=== PATIENT | male | born 1970 | race African-American/Black ===

== ENCOUNTER 2017-06-09 16:07 | Emergency (ER) | payer MEDICAID, OTHER ==
[~2017-06-09] VITALS: Ht 182.9 cm; Wt 92.0 kg
[~2017-06-09 16:07] MED LIST: ATOR10TA69 PO; CARV12.545 PO; DIGO250T81 PO; FURO40TA5 PO; LISI-186 PO; METOLAZONE PO; SPIR25TA4 PO
[2017-06-09 16:11] VITALS: BP 120/78
== END 2017-06-09 18:58 | disposition left against medical advice (07) ==
LOC: ER 16:36
DX: Z53.21 Procedure and treatment not carried out due to patient leaving prior to being seen by health care provider (principal)

== ENCOUNTER 2017-12-19 23:44 | Emergency (ER) | payer MEDICAID ==
[~2017-12-19] VITALS: Ht 182.9 cm; Wt 92.0 kg
[2017-12-20] MEDS ORDERED: ONDANSETRON HCL 4MG/2ML VIAL IV STA (00:41)
[2017-12-20] MEDS ORDERED: MORPHINE SULFATE 4 MG/ML CPJ (NOT FOR IM USE) IV STA (00:41)
[2017-12-20 01:08] LABS: BASOPHILS % 0.7 % (0.0-2.0); EOSINOPHILS % 0.3 % (0.0-5.0); HEMATOCRIT. 35.4 % (42.0-52.0); HEMOGLOBIN. 11.4 g/dL (14.0-18.0); LYMPHOCYTES % 7.1 % (20.0-50.0); MEAN CORPUSCULAR HEMOGLOBIN 29.9 pg (28.0-32.0); MEAN CORPUSCULAR VOLUME 92.9 fL (80.0-94.0); MEAN PLATELET VOLUME 6.7 fl (7.4-10.4); MONOCYTES % 9.7 % (2.0-8.0); NEUTROPHILS % 82.2 % (40.0-76.0); PLATELET 369 x1000/uL (130-400); RED BLOOD CELL COUNT 3.81 mill/uL (4.7-6.1); RED CELL DISTRIBUTION WIDTH 16.3 % (11.6-14.6)
[2017-12-20 01:44] LABS: CARBON DIOXIDE 27 mEq/L (21-32); CHLORIDE 98 mEq/L (98-107); TROPONIN I < 0.02 ng/mL (0.00-0.04)
[2017-12-20] MEDS ORDERED: IOHEXOL-350 100 ML BOTTLE ONE (06:17)
[2017-12-20 09:12] VITALS: BP 118/78
== END 2017-12-20 09:14 | disposition home or self-care (01) ==
LOC: ER 23:44
DX: R09.1 Pleurisy (principal); I10 Essential (primary) hypertension; J44.9 Chronic obstructive pulmonary disease, unspecified; F17.210 Nicotine dependence, cigarettes, uncomplicated; F12.10 Cannabis abuse, uncomplicated; Z91.011 Allergy to milk products
CPT/HCPCS: 36415; 71045; 71275; 80053; 83880; 84484; 85025; 85379; 93005; 96374; 96375; 99285; J2270; J2405; Q9967

== ENCOUNTER 2018-04-15 15:26 | Emergency (ER) | payer MEDICAID ==
[~2018-04-15] VITALS: Ht 182.9 cm; Wt 85.0 kg
[~2018-04-15 15:26] MED LIST changes: +ASPI-1158 MT; -DIGO250T81 PO; +NITR0.4T49 SL
[2018-04-15] MEDS ORDERED: LIDOCAINE HCL/EPINEPHRINE 1%-EPI 1:100,000 20 ML VIAL INFIL ONE (19:30)
[2018-04-15] MEDS ORDERED: HYDROCODONE/ACETAMINOPHEN 5/325MG TABLET PO ONE (19:30)
[2018-04-15 20:45] VITALS: BP 120/84
[2018-04-15] MEDS ORDERED: BACITRACIN ZINC OINT UDPKT TOP ONE (21:30)
== END 2018-04-15 21:30 | disposition home or self-care (01) ==
LOC: ER 15:55
DX: S81.811A Laceration without foreign body, right lower leg, initial encounter (principal); I10 Essential (primary) hypertension; F17.200 Nicotine dependence, unspecified, uncomplicated; Z79.82 Long term (current) use of aspirin; Y93.55 Activity, bike riding
CPT/HCPCS: 12004; 99283; J3490; X7700; Z7610

== ENCOUNTER 2018-04-21 12:26 | Emergency (ER) | payer MEDICAID ==
[~2018-04-21] VITALS: Ht 185.4 cm; Wt 89.0 kg
[2018-04-21 12:51] VITALS: BP 114/72
== END 2018-04-21 13:37 | disposition home or self-care (01) ==
LOC: ER 13:30
DX: Z48.00 Encounter for change or removal of nonsurgical wound dressing (principal)
CPT/HCPCS: 99281

== ENCOUNTER 2018-05-31 18:56 | Emergency (ER) | payer MEDICAID ==
[~2018-05-31] VITALS: Ht 185.4 cm; Wt 90.5 kg
[~2018-05-31 18:56] MED LIST changes: -SPIR25TA4 PO; +SPIR25TA6 PO
[2018-05-31] MEDS ORDERED: SULFAMETHOXAZOLE/TRIMETHOPRIM 800/160MG TABLET PO ONE (22:00)
[2018-05-31] MEDS ORDERED: CEPHALEXIN 500MG CAPSULE PO ONE (22:00)
[2018-05-31 22:21] VITALS: BP 125/88
== END 2018-05-31 22:22 | disposition home or self-care (01) ==
LOC: ER 22:15
DX: L76.82 Other postprocedural complications of skin and subcutaneous tissue (principal); L03.115 Cellulitis of right lower limb; Z48.02 Encounter for removal of sutures; I11.0 Hypertensive heart disease with heart failure; I50.9 Heart failure, unspecified; F12.10 Cannabis abuse, uncomplicated; F15.10 Other stimulant abuse, uncomplicated; Z91.011 Allergy to milk products; Y83.8 Other surgical procedures as the cause of abnormal reaction of the patient, or of later complication, without mention of misadventure at the time of the procedure
CPT/HCPCS: 99283

== ENCOUNTER 2018-09-22 23:12 | Inpatient (IN) | payer MEDICAID ==
[~2018-09-22] VITALS: Ht 185.4 cm; Wt 94.8 kg
[2018-09-23] MEDS ORDERED: MORPHINE SULFATE 4 MG/ML CPJ (NOT FOR IM USE) IV STA (03:28)
[2018-09-23] MEDS ORDERED: SODIUM CHLORIDE 0.9% 1,000 ML IV ONE (03:28)
[2018-09-23] MEDS ORDERED: ONDANSETRON HCL 4MG/2ML INJ IV STA (03:28)
[2018-09-23] MEDS ORDERED: VANCOMYCIN 1 G PREMIX 200 ML IV ONE (04:30)
[2018-09-23 04:32] LABS: HEMATOCRIT. 34.8 % (42.0-52.0); HEMOGLOBIN. 11.4 g/dL (14.0-18.0); MEAN CORPUSCULAR VOLUME 94.6 fL (80.0-94.0); PLATELET 327 x1000/uL (130-400); RED BLOOD CELL COUNT 3.68 mill/uL (4.7-6.1)
[2018-09-23 04:41] LABS: CHLORIDE 105 mEq/L (98-107)
[2018-09-23 06:15] LABS: PLATELET ESTIMATE NORMAL
[2018-09-23] MEDS ORDERED: HYDROCODONE/ACETAMINOPHEN 5/325MG TABLET PO PRN (08:45)
[2018-09-23] MEDS ORDERED: HYDROCODONE/ACETAMINOPHEN 10/325MG TABLET PO PRN (08:45)
[2018-09-23] MEDS ORDERED: ONDANSETRON HCL 4MG/2ML INJ IV PRN (08:45)
[2018-09-23] MEDS ORDERED: ACETAMINOPHEN 325MG TABLET PO PRN (08:45)
[2018-09-23] MEDS ORDERED: ACETAMINOPHEN 650MG/20.3ML UDC GT PRN (08:45)
[2018-09-23] MEDS ORDERED: ACETAMINOPHEN 650MG SUPP PR PRN (08:45)
[2018-09-23 09:36] LABS: *AMPHETAMINES SCREEN URINE PRESUMTIVE POSITIVE (NEGATIVE); *BARBITURATES SCREEN URINE NEGATIVE (NEGATIVE); *BENZODIAZEPINES SCREEN URINE NEGATIVE (NEGATIVE); *COCAINE SCREEN URINE NEGATIVE (NEGATIVE); CANNABINOID URINE SCREEN PRESUMTIVE POSITIVE (NEGATIVE); METHADONE URINE SCREEN NEGATIVE (NEGATIVE); OPIATES URINE SCREEN PRESUMTIVE POSITIVE (NEGATIVE); PHENCYCLIDINE URINE SCREEN NEGATIVE (NEGATIVE)
[2018-09-23 11:00] VITALS: BP 125/93
[2018-09-23 12:00] VITALS: BP 125/93
[2018-09-23] MEDS: SPIRONOLACTONE 25MG TABLET PO SCH (15:48)
[2018-09-23] MEDS: FUROSEMIDE 40MG TABLET PO SCH (15:48)
[2018-09-23] MEDS: LISINOPRIL 5MG TABLET PO SCH (15:49)
[2018-09-23] MEDS: ASPIRIN 81MG TABLET PO SCH (15:50)
[2018-09-23 16:00] VITALS: BP 109/68
[2018-09-23 16:13] LABS: CREATINE KINASE 89 IU/L (39-308); CREATINE KINASE MB FRACTION 3.7 ng/mL (0.5-3.6)
[2018-09-23 17:29] LABS: CLARITY URINE CLEAR (CLEAR); COLOR URINE YELLOW (YELLOW); KETONES URINE NEGATIVE (NEGATIVE); LEUKOCYTE ESTERASE URINE NEGATIVE (NEGATIVE); NITRITE URINE NEGATIVE (NEGATIVE); OCCULT BLOOD URINE TRACE (NEGATIVE); PROTEIN URINE 2+ (NEGATIVE); SPECIFIC GRAVITY URINE 1.017 (1.005-1.030); UROBILINOGEN URINE 0.2 E.U./dL (0.2-1.0)
[2018-09-23] MEDS: PANTOPRAZOLE 40MG DR TABLET PO SCH (18:01)
[2018-09-23 20:00] VITALS: BP 106/70
[2018-09-23] MEDS ORDERED: VANCOMYCIN 1250MG in DEXTROSE 5% WATER 250ML IV NR (20:00)
[2018-09-24] VITALS: BP 117/76
[2018-09-24 00:06] LABS: CREATINE KINASE 80 IU/L (39-308); CREATINE KINASE MB FRACTION 3.2 ng/mL (0.5-3.6)
[2018-09-24] MEDS: CARVEDILOL 12.5MG TABLET PO SCH ×3 (00:58→21:30)
[2018-09-24 04:00] VITALS: BP 119/72
[2018-09-24] MEDS: PANTOPRAZOLE 40MG DR TABLET PO SCH (06:49)
[2018-09-24 07:32] LABS: HEMATOCRIT. 33.7 % (42.0-52.0); HEMOGLOBIN. 11.2 g/dL (14.0-18.0); MEAN CORPUSCULAR HEMOGLOBIN 31.3 pg (28.0-32.0); MEAN CORPUSCULAR VOLUME 94.4 fL (80.0-94.0); MEAN PLATELET VOLUME 7.3 fl (7.4-10.4); PLATELET 306 x1000/uL (130-400); RED BLOOD CELL COUNT 3.57 mill/uL (4.7-6.1); RED CELL DISTRIBUTION WIDTH 17.2 % (11.6-14.6)
[2018-09-24 08:00] VITALS: BP 106/70
[2018-09-24] MEDS ORDERED: VANCOMYCIN 1 G PREMIX 200 ML IV SCH (08:00)
[2018-09-24 08:53] LABS: CHLORIDE 102 mEq/L (98-107)
[2018-09-24] MEDS: LISINOPRIL 5MG TABLET PO SCH (09:00)
[2018-09-24 09:07] LABS: HDL CHOLESTEROL 60 mg/dL (40-59); LDL CHOLESTEROL 66 mg/dL (5-100); T4 FREE 0.89 ng/dL (0.76-1.46)
[2018-09-24] MEDS: ASPIRIN 81MG TABLET PO SCH (09:24)
[2018-09-24] MEDS: FUROSEMIDE 40MG TABLET PO SCH (09:24)
[2018-09-24] MEDS: SPIRONOLACTONE 25MG TABLET PO SCH (09:24)
[2018-09-24 12:40] VITALS: BP 105/74
[2018-09-24 13:06] LABS: NUCLEATED RED BLOOD CELLS 1 /100 WBC; PLATELET ESTIMATE NORMAL
[2018-09-24 16:00] VITALS: BP 114/83
[2018-09-24 20:00] VITALS: BP 135/91
[2018-09-24] MEDS: VANCOMYCIN 1 G PREMIX 200 ML IV SCH (21:29)
[2018-09-25] VITALS: BP 114/69
[2018-09-25 04:00] VITALS: BP 107/74
[2018-09-25] MEDS: PANTOPRAZOLE 40MG DR TABLET PO SCH (06:28)
[2018-09-25 07:10] LABS: BASOPHILS % 0.4 % (0.0-2.0); EOSINOPHILS % 0.4 % (0.0-5.0); HEMATOCRIT. 34.9 % (42.0-52.0); HEMOGLOBIN. 11.8 g/dL (14.0-18.0); LYMPHOCYTES % 9.2 % (20.0-50.0); MEAN CORPUSCULAR HEMOGLOBIN 31.8 pg (28.0-32.0); MEAN PLATELET VOLUME 7.3 fl (7.4-10.4); MONOCYTES % 13.6 % (2.0-8.0); NEUTROPHILS % 76.4 % (40.0-76.0); PLATELET 317 x1000/uL (130-400); RED BLOOD CELL COUNT 3.71 mill/uL (4.7-6.1); RED CELL DISTRIBUTION WIDTH 17.3 % (11.6-14.6)
[2018-09-25 08:00] VITALS: BP 133/76
[2018-09-25 08:15] LABS: CHLORIDE 100 mEq/L (98-107)
[2018-09-25] MEDS: SPIRONOLACTONE 25MG TABLET PO SCH (08:36)
[2018-09-25] MEDS: LISINOPRIL 5MG TABLET PO SCH (08:36)
[2018-09-25] MEDS: FUROSEMIDE 40MG TABLET PO SCH (08:36)
[2018-09-25] MEDS: ASPIRIN 81MG TABLET PO SCH (08:36)
[2018-09-25] MEDS: CARVEDILOL 12.5MG TABLET PO SCH (08:37)
[2018-09-25] MEDS: VANCOMYCIN 1 G PREMIX 200 ML IV SCH (08:37)
[2018-09-25 12:00] VITALS: BP 114/90
[2018-09-25 16:00] VITALS: BP 107/76
[2018-09-25] MEDS ORDERED: DOXY150T MT (16:45)
[2018-09-25] MEDS ORDERED: PANT40TA4 PO (16:45)
[2018-09-25] MEDS ORDERED: CEPH-569 MT (16:45)
[2018-09-25 16:55] VITALS: BP 107/76
== END 2018-09-25 18:03 | disposition home or self-care (01) | DRG 207 ==
LOC: ER 23:12 → EDBEDREQ 09-23 03:40 → 6EST 09-23 07:19 → EDBEDREQTM 09-23 08:10 → EDBEDREQ 09-23 08:10
PROVIDERS: ADMIT Internal Medicine; ATTEND Internal Medicine
DX: I87.8 Other specified disorders of veins (principal); N17.9 Acute kidney failure, unspecified; R65.10 Systemic inflammatory response syndrome (SIRS) of non-infectious origin without acute organ dysfunction; L03.115 Cellulitis of right lower limb; I11.0 Hypertensive heart disease with heart failure; I50.9 Heart failure, unspecified; E78.5 Hyperlipidemia, unspecified; F17.200 Nicotine dependence, unspecified, uncomplicated; J44.9 Chronic obstructive pulmonary disease, unspecified; Z79.899 Other long term (current) drug therapy; Z79.82 Long term (current) use of aspirin; Z91.011 Allergy to milk products
CPT/HCPCS: 36415; 80048; 80061; 80202; 80305; 82550; 82553; 83605; 84145; 84439; 84443; 84481; 84484; 93971; 96365; 96375; 97116; 97162; 99285; J2270; J2405; J3370; J7030; J7050; J7060

== ENCOUNTER 2019-02-07 00:33 | Inpatient (IN) | payer MEDICAID ==
[~2019-02-07] VITALS: Ht 185.4 cm; Wt 105.7 kg
[~2019-02-07 00:33] MED LIST changes: +CEPH-569 MT; +DOXY150T MT; +PANT40TA4 PO
[2019-02-07] MEDS ORDERED: KETOROLAC 30MG/ML VIAL IV STA (06:29)
[2019-02-07 07:01] LABS: BASOPHILS % 0.6 % (0.0-2.0); EOSINOPHILS % 0.3 % (0.0-5.0); HEMATOCRIT. 36.4 % (42.0-52.0); HEMOGLOBIN. 11.9 g/dL (14.0-18.0); MEAN CORPUSCULAR HEMOGLOBIN 31.1 pg (28.0-32.0); MEAN CORPUSCULAR VOLUME 94.9 fL (80.0-94.0); MEAN PLATELET VOLUME 7.4 fl (7.4-10.4); MONOCYTES % 12.3 % (2.0-8.0); NEUTROPHILS % 78.8 % (40.0-76.0); PLATELET 310 x1000/uL (130-400); RED BLOOD CELL COUNT 3.83 mill/uL (4.7-6.1); RED CELL DISTRIBUTION WIDTH 17.8 % (11.6-14.6)
[2019-02-07 07:02] LABS: CHLORIDE 106 mEq/L (98-107)
[2019-02-07 13:00] VITALS: BP 136/86
[2019-02-07 13:02] VITALS: BP 136/86
[2019-02-07] MEDS ORDERED: ONDANSETRON HCL 4MG/2ML INJ IV PRN (14:00)
[2019-02-07] MEDS ORDERED: ASPIRIN 81MG TABLET PO SCH (14:00)
[2019-02-07] MEDS ORDERED: CLONIDINE 0.1MG TABLET PO PRN (14:00)
[2019-02-07] MEDS: CARVEDILOL 3.125 MG TABLET PO SCH ×2 (14:00→22:17)
[2019-02-07] MEDS ORDERED: DOCUSATE SODIUM 100MG CAPSULE PO PRN (14:00)
[2019-02-07] MEDS ORDERED: IPRATROPIUM/ALBUTEROL 0.5-3(2.5)MG/3ML NEB INH PRN (14:00)
[2019-02-07] MEDS ORDERED: LORAZEPAM 0.5MG TABLET PO PRN (14:00)
[2019-02-07] MEDS ORDERED: ACETAMINOPHEN 325MG TABLET PO PRN (14:00)
[2019-02-07] MEDS ORDERED: HYDROCODONE/ACETAMINOPHEN 5/325MG TABLET PO PRN (14:00)
[2019-02-07 14:55] VITALS: BP 108/73
[2019-02-07 15:44] VITALS: BP 101/67
[2019-02-07] MEDS: MORPHINE SULFATE 4 MG/ML CPJ (NOT FOR IM USE) IV PRN (15:49)
[2019-02-07 19:32] LABS: CREATINE KINASE MB FRACTION 4.5 ng/mL (0.5-3.6)
[2019-02-07] MEDS ORDERED: AZITHROMYCIN 500 MG in DEXT 5% WATER 250 ML IV SCH (19:45)
[2019-02-07] MEDS ORDERED: GUAIFENESIN-DM 200MG-20MG/10ML UDC PO PRN (19:45)
[2019-02-07 20:00] VITALS: BP 117/78
[2019-02-07] MEDS ORDERED: DEXTROSE 50% WATER 50ML SYRINGE IV PRN (21:15)
[2019-02-07] MEDS: ATORVASTATIN CALCIUM 10MG TABLET PO SCH (21:26)
[2019-02-07] MEDS: ENOXAPARIN 30MG/0.3ML SYR SUBCUT SCH (21:26)
[2019-02-07] MEDS: AZITHROMYCIN 500 MG TABLET PO SCH (21:27)
[2019-02-07] MEDS: LISINOPRIL 5MG TABLET PO SCH (21:27)
[2019-02-07 22:17] LABS: PHOSPHORUS 2.8 mg/dL (2.5-4.9)
[2019-02-07 22:34] LABS: FOLIC ACID (FOLATE) SERUM 15.9 ng/mL (>5.38)
[2019-02-08] VITALS: BP 121/89
[2019-02-08 04:00] VITALS: BP 104/73
[2019-02-08] MEDS: MORPHINE SULFATE 4 MG/ML CPJ (NOT FOR IM USE) IV PRN ×2 (04:15→20:02)
[2019-02-08 05:35] LABS: HEMATOCRIT. 33.9 % (42.0-52.0); HEMOGLOBIN. 11.1 g/dL (14.0-18.0); MEAN CORPUSCULAR HEMOGLOBIN 31.2 pg (28.0-32.0); MEAN CORPUSCULAR VOLUME 95.5 fL (80.0-94.0); MEAN PLATELET VOLUME 7.3 fl (7.4-10.4); PLATELET 293 x1000/uL (130-400); RED BLOOD CELL COUNT 3.55 mill/uL (4.7-6.1); RED CELL DISTRIBUTION WIDTH 17.8 % (11.6-14.6)
[2019-02-08 05:47] LABS: CHLORIDE 104 mEq/L (98-107)
[2019-02-08 08:00] VITALS: BP 122/82
[2019-02-08] MEDS: INSULIN LISPRO 100 UNITS/ML SUBCUT SCH ×4 (08:10→21:00)
[2019-02-08] MEDS: LISINOPRIL 5MG TABLET PO SCH (08:16)
[2019-02-08] MEDS: BLOOD SUGAR DIAGNOSTIC STRIP TEST SCH ×4 (08:16→21:00)
[2019-02-08] MEDS: PANTOPRAZOLE 40MG DR TABLET PO SCH (08:17)
[2019-02-08] MEDS: FUROSEMIDE 40MG/4ML VIAL IVP SCH (08:17)
[2019-02-08] MEDS: CARVEDILOL 3.125 MG TABLET PO SCH ×2 (08:17→20:03)
[2019-02-08] MEDS: SPIRONOLACTONE 25MG TABLET PO SCH (08:17)
[2019-02-08] MEDS: ASPIRIN 81MG TABLET PO SCH (08:17)
[2019-02-08] MEDS: ENOXAPARIN 30MG/0.3ML SYR SUBCUT SCH ×2 (08:18→20:02)
[2019-02-08 12:00] VITALS: BP 121/83
[2019-02-08 12:39] LABS: CLARITY URINE CLEAR (CLEAR); COLOR URINE YELLOW (YELLOW); KETONES URINE NEGATIVE (NEGATIVE); LEUKOCYTE ESTERASE URINE NEGATIVE (NEGATIVE); NITRITE URINE NEGATIVE (NEGATIVE); OCCULT BLOOD URINE NEGATIVE (NEGATIVE); PH URINE 5.5 (4.5-8.0); PROTEIN URINE 1+ (NEGATIVE); SPECIFIC GRAVITY URINE 1.015 (1.005-1.030); UROBILINOGEN URINE 0.2 E.U./dL (0.2-1.0)
[2019-02-08 13:12] LABS: *AMPHETAMINES SCREEN URINE PRESUMTIVE POSITIVE (NEGATIVE); *BARBITURATES SCREEN URINE NEGATIVE (NEGATIVE); *BENZODIAZEPINES SCREEN URINE NEGATIVE (NEGATIVE)
[2019-02-08 13:13] LABS: *COCAINE SCREEN URINE NEGATIVE (NEGATIVE)
[2019-02-08 13:14] LABS: OPIATES URINE SCREEN PRESUMTIVE POSITIVE (NEGATIVE)
[2019-02-08 13:16] LABS: CANNABINOID URINE SCREEN NEGATIVE (NEGATIVE)
[2019-02-08 13:17] LABS: METHADONE URINE SCREEN NEGATIVE (NEGATIVE)
[2019-02-08 13:18] LABS: PHENCYCLIDINE URINE SCREEN NEGATIVE (NEGATIVE)
[2019-02-08 13:57] LABS: NUCLEATED RED BLOOD CELLS 1 /100 WBC; PLATELET ESTIMATE NORMAL
[2019-02-08 16:00] VITALS: BP 128/79
[2019-02-08] MEDS: AZITHROMYCIN 500 MG TABLET PO SCH (16:47)
[2019-02-08] MEDS: NICOTINE 14MG PATCH TD SCH (16:47)
[2019-02-08] MEDS: METHYLPREDNISOLONE SOD SUCC 40 MG/ML VIAL IV SCH ×2 (16:54→23:48)
[2019-02-08 20:00] VITALS: BP 103/75
[2019-02-08] MEDS: ATORVASTATIN CALCIUM 10MG TABLET PO SCH (20:02)
[2019-02-08] MEDS: CYCLOBENZAPRINE 10MG TABLET PO SCH (22:15)
[2019-02-09] VITALS: BP 110/76
[2019-02-09 04:00] VITALS: BP 116/78
[2019-02-09] MEDS: IPRATROPIUM/ALBUTEROL 0.5-3(2.5)MG/3ML NEB HHN SCH ×4 (05:18→20:20)
[2019-02-09] MEDS: MORPHINE SULFATE 4 MG/ML CPJ (NOT FOR IM USE) IV PRN (05:24)
[2019-02-09] MEDS: CYCLOBENZAPRINE 10MG TABLET PO SCH ×3 (05:24→21:04)
[2019-02-09] MEDS: BLOOD SUGAR DIAGNOSTIC STRIP TEST SCH ×4 (05:44→20:48)
[2019-02-09 06:17] LABS: HEMATOCRIT. 34.2 % (42.0-52.0); HEMOGLOBIN. 11.1 g/dL (14.0-18.0); MEAN CORPUSCULAR HEMOGLOBIN 30.7 pg (28.0-32.0); MEAN CORPUSCULAR VOLUME 95.2 fL (80.0-94.0); MEAN PLATELET VOLUME 7.5 fl (7.4-10.4); PLATELET 315 x1000/uL (130-400); RED CELL DISTRIBUTION WIDTH 18.4 % (11.6-14.6)
[2019-02-09 06:30] LABS: CHLORIDE 102 mEq/L (98-107)
[2019-02-09] MEDS: PANTOPRAZOLE 40MG DR TABLET PO SCH (06:38)
[2019-02-09 06:43] LABS: T4 FREE 0.84 ng/dL (0.76-1.46)
[2019-02-09 08:00] VITALS: BP 108/60
[2019-02-09] MEDS: LISINOPRIL 5MG TABLET PO SCH (08:35)
[2019-02-09] MEDS: ASPIRIN 81MG TABLET PO SCH (08:36)
[2019-02-09] MEDS: SPIRONOLACTONE 25MG TABLET PO SCH (08:36)
[2019-02-09] MEDS: METHYLPREDNISOLONE SOD SUCC 40 MG/ML VIAL IV SCH ×2 (08:36→16:57)
[2019-02-09] MEDS: ENOXAPARIN 30MG/0.3ML SYR SUBCUT SCH ×2 (08:36→20:47)
[2019-02-09] MEDS: NICOTINE 14MG PATCH TD SCH (08:36)
[2019-02-09] MEDS: CARVEDILOL 3.125 MG TABLET PO SCH ×2 (08:36→20:47)
[2019-02-09] MEDS: FUROSEMIDE 40MG/4ML VIAL IVP SCH (08:46)
[2019-02-09] MEDS: INSULIN LISPRO 100 UNITS/ML SUBCUT SCH ×4 (09:28→20:48)
[2019-02-09 10:34] LABS: PLATELET ESTIMATE NORMAL
[2019-02-09 12:00] VITALS: BP 111/79
[2019-02-09] MEDS: GUAIFENESIN 600MG ER TABLET PO SCH ×2 (14:08→20:47)
[2019-02-09] MEDS: BENZONATATE 100MG CAPSULE PO SCH ×2 (14:08→21:04)
[2019-02-09 16:00] VITALS: BP 101/62
[2019-02-09] MEDS: AZITHROMYCIN 500 MG TABLET PO SCH (16:57)
[2019-02-09] MEDS: ATORVASTATIN CALCIUM 10MG TABLET PO SCH (20:47)
[2019-02-09 20:50] VITALS: BP 127/87
[2019-02-10 00:21] VITALS: BP 130/65
[2019-02-10] MEDS: MORPHINE SULFATE 4 MG/ML CPJ (NOT FOR IM USE) IV PRN (02:02)
[2019-02-10 04:00] VITALS: BP 112/76
[2019-02-10] MEDS: BENZONATATE 100MG CAPSULE PO SCH ×2 (05:21→15:30)
[2019-02-10] MEDS: CYCLOBENZAPRINE 10MG TABLET PO SCH ×2 (05:21→15:30)
[2019-02-10] MEDS: BLOOD SUGAR DIAGNOSTIC STRIP TEST SCH ×3 (05:28→17:40)
[2019-02-10 05:44] LABS: HEMATOCRIT. 33.9 % (42.0-52.0); HEMOGLOBIN. 10.8 g/dL (14.0-18.0); MEAN CORPUSCULAR HEMOGLOBIN 30.5 pg (28.0-32.0); MEAN CORPUSCULAR VOLUME 95.4 fL (80.0-94.0); MEAN PLATELET VOLUME 7.3 fl (7.4-10.4); PLATELET 335 x1000/uL (130-400); RED BLOOD CELL COUNT 3.55 mill/uL (4.7-6.1); RED CELL DISTRIBUTION WIDTH 17.7 % (11.6-14.6)
[2019-02-10] MEDS: PANTOPRAZOLE 40MG DR TABLET PO SCH (06:53)
[2019-02-10] MEDS: INSULIN LISPRO 100 UNITS/ML SUBCUT SCH ×3 (06:53→18:30)
[2019-02-10 07:09] LABS: CHLORIDE 104 mEq/L (98-107)
[2019-02-10 08:00] VITALS: BP 106/76
[2019-02-10] MEDS: GUAIFENESIN 600MG ER TABLET PO SCH (08:47)
[2019-02-10] MEDS: ASPIRIN 81MG TABLET PO SCH (08:47)
[2019-02-10] MEDS: NICOTINE 14MG PATCH TD SCH (08:47)
[2019-02-10] MEDS: SPIRONOLACTONE 25MG TABLET PO SCH (08:47)
[2019-02-10] MEDS: CARVEDILOL 3.125 MG TABLET PO SCH (08:48)
[2019-02-10] MEDS: ENOXAPARIN 30MG/0.3ML SYR SUBCUT SCH (08:48)
[2019-02-10] MEDS: LISINOPRIL 5MG TABLET PO SCH (08:49)
[2019-02-10] MEDS: FUROSEMIDE 40MG/4ML VIAL IVP SCH (09:31)
[2019-02-10] MEDS: METHYLPREDNISOLONE SOD SUCC 40 MG/ML VIAL IV SCH (09:31)
[2019-02-10 12:00] VITALS: BP 125/90
[2019-02-10 16:00] VITALS: BP 114/50
[2019-02-10] MEDS ORDERED: AZIT500T5 PO (17:54)
[2019-02-10] MEDS ORDERED: COR3 PO (17:54)
[2019-02-10] MEDS: AZITHROMYCIN 500 MG TABLET PO SCH (18:25)
[2019-02-10 20:00] VITALS: BP 118/78
[2019-02-11 04:15] LABS: PLATELET ESTIMATE NORMAL
[2019-02-11] MEDS ORDERED: FAMOTIDINE 20MG TABLET PO SCH (09:00)
[2019-02-11] MEDS ORDERED: PREDNISONE 20MG TABLET PO SCH (09:00)
== END 2019-02-10 20:10 | disposition home or self-care (01) | DRG 140 ==
LOC: ER 00:33 → 7WST 09:50 → ENRESERV 11:14
PROVIDERS: ADMIT Internal Medicine; ATTEND Internal Medicine
DX: J44.0 Chronic obstructive pulmonary disease with (acute) lower respiratory infection (principal); J96.00 Acute respiratory failure, unspecified whether with hypoxia or hypercapnia; I50.43 Acute on chronic combined systolic (congestive) and diastolic (congestive) heart failure; J84.9 Interstitial pulmonary disease, unspecified; I42.9 Cardiomyopathy, unspecified; E11.22 Type 2 diabetes mellitus with diabetic chronic kidney disease; E11.65 Type 2 diabetes mellitus with hyperglycemia; D53.9 Nutritional anemia, unspecified; J44.1 Chronic obstructive pulmonary disease with (acute) exacerbation; D72.821 Monocytosis (symptomatic); F19.10 Other psychoactive substance abuse, uncomplicated; J20.9 Acute bronchitis, unspecified; E78.5 Hyperlipidemia, unspecified; I13.0 Hypertensive heart and chronic kidney disease with heart failure and stage 1 through stage 4 chronic kidney disease, or unspecified chronic kidney disease; N18.9 Chronic kidney disease, unspecified; D72.823 Leukemoid reaction; F17.210 Nicotine dependence, cigarettes, uncomplicated; T38.0X5A Adverse effect of glucocorticoids and synthetic analogues, initial encounter; Z79.84 Long term (current) use of oral hypoglycemic drugs; Z91.011 Allergy to milk products; Z79.82 Long term (current) use of aspirin; Z79.899 Other long term (current) drug therapy; M94.0 Chondrocostal junction syndrome [Tietze]
CPT/HCPCS: 36415; 71045; 76770; 80048; 80061; 80305; 82550; 82553; 82607; 82728; 82746; 82962; 83036; 83540; 83550; 83735; 83880; 84100; 84439; 84443; 84481; 84484; 85379; 87804; 93005; 93306; 94640; 96374; 99285; J1650; J1815; J1885; J1940; J2270; J2920; J7620

== ENCOUNTER 2019-02-22 18:02 | Inpatient (IN) | payer MEDICAID ==
[~2019-02-22] VITALS: Ht 185.4 cm; Wt 111.1 kg
[~2019-02-22 18:02] MED LIST changes: +AZIT500T5 PO; -CARV12.545 PO; -CEPH-569 MT; +COR3 PO; -DOXY150T MT; -METOLAZONE PO
[2019-02-22 20:08] LABS: BASOPHILS % 0.8 % (0.0-2.0); EOSINOPHILS % 0.4 % (0.0-5.0); HEMATOCRIT. 30.6 % (42.0-52.0); HEMOGLOBIN. 9.9 g/dL (14.0-18.0); LYMPHOCYTES % 10.4 % (20.0-50.0); MEAN CORPUSCULAR HEMOGLOBIN 31.1 pg (28.0-32.0); MEAN CORPUSCULAR VOLUME 95.5 fL (80.0-94.0); MEAN PLATELET VOLUME 7.4 fl (7.4-10.4); MONOCYTES % 11.4 % (2.0-8.0); PLATELET 292 x1000/uL (130-400); RED CELL DISTRIBUTION WIDTH 17.7 % (11.6-14.6)
[2019-02-22 20:11] LABS: CHLORIDE 110 mEq/L (98-107)
[2019-02-22 20:12] LABS: PROTHROMBIN TIME 9.8 sec (9.1-11.1)
[2019-02-22] MEDS ORDERED: ACETAMINOPHEN WITH CODEINE 300/30MG TABLET PO ONE (21:00)
[2019-02-22] MEDS ORDERED: ALBUTEROL (0.083%) 2.5MG/3ML NEB HHN ONE (21:00)
[2019-02-22] MEDS ORDERED: ONDANSETRON HCL 4MG/2ML INJ IV PRN (22:00)
[2019-02-22] MEDS ORDERED: HYDROCODONE/ACETAMINOPHEN 5/325MG TABLET PO PRN (22:00)
[2019-02-22] MEDS ORDERED: ENOXAPARIN 40MG/0.4ML SYR SUBCUT SCH (22:00)
[2019-02-22] MEDS ORDERED: IPRATROPIUM/ALBUTEROL 0.5-3(2.5)MG/3ML NEB INH PRN (22:00)
[2019-02-22] MEDS ORDERED: CLONIDINE 0.1MG TABLET PO PRN (22:00)
[2019-02-22] MEDS ORDERED: ACETAMINOPHEN 325MG TABLET PO PRN (22:00)
[2019-02-22 23:14] LABS: CHLORIDE 108 mEq/L (98-107)
[2019-02-22 23:22] LABS: CREATINE KINASE 129 IU/L (39-308)
[2019-02-22 23:25] LABS: CREATINE KINASE MB FRACTION 3.9 ng/mL (0.5-3.6)
[2019-02-23 00:16] LABS: CLARITY URINE CLEAR (CLEAR); COLOR URINE YELLOW (YELLOW); KETONES URINE NEGATIVE (NEGATIVE); LEUKOCYTE ESTERASE URINE NEGATIVE (NEGATIVE); NITRITE URINE NEGATIVE (NEGATIVE); OCCULT BLOOD URINE NEGATIVE (NEGATIVE); PROTEIN URINE 2+ (NEGATIVE); SPECIFIC GRAVITY URINE 1.016 (1.005-1.030); UROBILINOGEN URINE 0.2 E.U./dL (0.2-1.0)
[2019-02-23 00:43] LABS: *AMPHETAMINES SCREEN URINE PRESUMTIVE POSITIVE (NEGATIVE); *BARBITURATES SCREEN URINE NEGATIVE (NEGATIVE); *BENZODIAZEPINES SCREEN URINE NEGATIVE (NEGATIVE)
[2019-02-23 00:44] LABS: *COCAINE SCREEN URINE NEGATIVE (NEGATIVE); CANNABINOID URINE SCREEN NEGATIVE (NEGATIVE); OPIATES URINE SCREEN PRESUMTIVE POSITIVE (NEGATIVE); PHENCYCLIDINE URINE SCREEN NEGATIVE (NEGATIVE)
[2019-02-23 00:45] LABS: METHADONE URINE SCREEN NEGATIVE (NEGATIVE)
[2019-02-23 05:21] LABS: LDL CHOLESTEROL 70 mg/dL (5-100)
[2019-02-23 05:22] LABS: CREATINE KINASE 117 IU/L (39-308)
[2019-02-23 05:23] LABS: HDL CHOLESTEROL 57 mg/dL (40-59)
[2019-02-23 05:24] LABS: CREATINE KINASE MB FRACTION 3.8 ng/mL (0.5-3.6)
[2019-02-23 10:30] VITALS: BP_SYST 133; BP_SYST 135; BP_DIAS 106; BP_DIAS 95
[2019-02-23] MEDS ORDERED: ALBU18HF2 IH (11:55)
[2019-02-23] MEDS ORDERED: SACU1TAB MT (11:55)
[2019-02-23 12:00] VITALS: BP 122/83
[2019-02-23] MEDS: ENOXAPARIN 30MG/0.3ML SYR SUBCUT SCH ×2 (13:52→21:31)
[2019-02-23] MEDS ORDERED: SPIRONOLACTONE 25MG TABLET PO SCH (14:30)
[2019-02-23 16:00] VITALS: BP 135/95
[2019-02-23] MEDS: LISINOPRIL 5MG TABLET PO SCH (16:36)
[2019-02-23] MEDS: ASPIRIN 81MG TABLET PO SCH (16:36)
[2019-02-23] MEDS: ATORVASTATIN CALCIUM 10MG TABLET PO SCH (16:36)
[2019-02-23] MEDS: FUROSEMIDE 40MG/4ML VIAL IVP SCH ×2 (16:37→16:56)
[2019-02-23] MEDS: PANTOPRAZOLE 40MG DR TABLET PO SCH (16:37)
[2019-02-23] MEDS: MORPHINE SULFATE 4 MG/ML CPJ (NOT FOR IM USE) IV PRN ×2 (16:46→23:51)
[2019-02-23 19:21] VITALS: BP 134/97
[2019-02-23] MEDS ORDERED: CARVEDILOL 3.125 MG TABLET PO SCH (21:00)
[2019-02-23] MEDS: METOPROLOL TARTRATE 25MG TABLET PO SCH (21:31)
[2019-02-24] VITALS: BP 126/77
[2019-02-24 04:00] VITALS: BP 132/78
[2019-02-24] MEDS: PANTOPRAZOLE 40MG DR TABLET PO SCH (07:01)
[2019-02-24 07:42] LABS: CHLORIDE 106 mEq/L (98-107)
[2019-02-24 08:00] VITALS: BP 145/106
[2019-02-24] MEDS: MORPHINE SULFATE 4 MG/ML CPJ (NOT FOR IM USE) IV PRN ×2 (09:54→21:59)
[2019-02-24] MEDS: ASPIRIN 81MG TABLET PO SCH (10:03)
[2019-02-24] MEDS: ATORVASTATIN CALCIUM 10MG TABLET PO SCH (10:03)
[2019-02-24] MEDS: LISINOPRIL 5MG TABLET PO SCH (10:03)
[2019-02-24] MEDS: METOPROLOL TARTRATE 25MG TABLET PO SCH (10:04)
[2019-02-24] MEDS: FUROSEMIDE 40MG/4ML VIAL IVP SCH (10:10)
[2019-02-24] MEDS: ENOXAPARIN 30MG/0.3ML SYR SUBCUT SCH ×2 (10:11→21:45)
[2019-02-24 12:00] VITALS: BP 139/99
[2019-02-24 16:00] VITALS: BP 111/80
[2019-02-24] MEDS: CYCLOBENZAPRINE 10MG TABLET PO SCH ×2 (17:04→21:33)
[2019-02-24 20:00] VITALS: BP 126/80
[2019-02-24] MEDS: METOPROLOL TARTRATE 50MG TABLET PO SCH (21:33)
[2019-02-25] VITALS: BP 119/59
[2019-02-25 04:00] VITALS: BP 107/62
[2019-02-25] MEDS: CYCLOBENZAPRINE 10MG TABLET PO SCH ×2 (05:56→14:41)
[2019-02-25 07:12] LABS: BASOPHILS % 0.6 % (0.0-2.0); EOSINOPHILS % 0.5 % (0.0-5.0); HEMATOCRIT. 31.7 % (42.0-52.0); HEMOGLOBIN. 10.3 g/dL (14.0-18.0); LYMPHOCYTES % 13.3 % (20.0-50.0); MEAN CORPUSCULAR HEMOGLOBIN 31.3 pg (28.0-32.0); MEAN CORPUSCULAR VOLUME 96.2 fL (80.0-94.0); MEAN PLATELET VOLUME 7.4 fl (7.4-10.4); MONOCYTES % 10.9 % (2.0-8.0); NEUTROPHILS % 74.7 % (40.0-76.0); PLATELET 345 x1000/uL (130-400); RED CELL DISTRIBUTION WIDTH 17.4 % (11.6-14.6)
[2019-02-25 07:47] LABS: CHLORIDE 107 mEq/L (98-107)
[2019-02-25 07:55] VITALS: BP 128/96
[2019-02-25] MEDS: PANTOPRAZOLE 40MG DR TABLET PO SCH (07:58)
[2019-02-25] MEDS ORDERED: FUROSEMIDE 20MG TABLET PO SCH (09:00)
[2019-02-25] MEDS ORDERED: LISINOPRIL 10MG TABLET PO SCH (09:00)
[2019-02-25] MEDS: MORPHINE SULFATE 4 MG/ML CPJ (NOT FOR IM USE) IV PRN (09:13)
[2019-02-25] MEDS: METOPROLOL TARTRATE 50MG TABLET PO SCH (09:17)
[2019-02-25] MEDS: ASPIRIN 81MG TABLET PO SCH (09:18)
[2019-02-25] MEDS: ATORVASTATIN CALCIUM 10MG TABLET PO SCH (09:18)
[2019-02-25] MEDS: ENOXAPARIN 30MG/0.3ML SYR SUBCUT SCH (09:19)
[2019-02-25] MEDS ORDERED: METO100T16 PO (12:07)
[2019-02-25] MEDS ORDERED: FURO20TA4 PO (12:07)
[2019-02-25] MEDS ORDERED: LISI10TA5 PO (12:07)
[2019-02-25 12:30] VITALS: BP_SYST 120; BP_SYST 132; BP_DIAS 74; BP_DIAS 88
[2019-02-25 16:01] VITALS: BP 100/72
[2019-02-25 16:25] VITALS: BP 100/72
[2019-02-25] MEDS ORDERED: METOPROLOL TARTRATE 100MG TABLET PO SCH (21:00)
== END 2019-02-25 18:40 | disposition home or self-care (01) | DRG 194 ==
LOC: ER 18:24 → 6WST 21:34 → EDBEDREQ 21:37 → EDBEDREQTM 21:37 → EDBEDREQSVC 21:37 → ENRESERV 02-23 08:14 → ER 02-23 10:26
PROVIDERS: ADMIT Internal Medicine; ATTEND Internal Medicine
PROC: 0JBN0ZZ Excision of Right Lower Leg Subcutaneous Tissue and Fascia, Open Approach (ICD-10-PCS; principal; 2019-02-24)
DX: I13.0 Hypertensive heart and chronic kidney disease with heart failure and stage 1 through stage 4 chronic kidney disease, or unspecified chronic kidney disease (principal); J84.9 Interstitial pulmonary disease, unspecified; E11.22 Type 2 diabetes mellitus with diabetic chronic kidney disease; E11.42 Type 2 diabetes mellitus with diabetic polyneuropathy; S81.811A Laceration without foreign body, right lower leg, initial encounter; I50.23 Acute on chronic systolic (congestive) heart failure; E11.65 Type 2 diabetes mellitus with hyperglycemia; I47.1 Supraventricular tachycardia; I42.9 Cardiomyopathy, unspecified; E83.51 Hypocalcemia; D53.9 Nutritional anemia, unspecified; D72.821 Monocytosis (symptomatic); E78.5 Hyperlipidemia, unspecified; F17.210 Nicotine dependence, cigarettes, uncomplicated; J44.9 Chronic obstructive pulmonary disease, unspecified; N18.9 Chronic kidney disease, unspecified; E66.01 Morbid (severe) obesity due to excess calories; F15.10 Other stimulant abuse, uncomplicated; L97.919 Non-pressure chronic ulcer of unspecified part of right lower leg with unspecified severity; Y93.89 Activity, other specified; Z79.84 Long term (current) use of oral hypoglycemic drugs; Z68.32 Body mass index [BMI] 32.0-32.9, adult; Y93.55 Activity, bike riding; Y92.89 Other specified places as the place of occurrence of the external cause; Y99.8 Other external cause status; Z71.6 Tobacco abuse counseling; Z91.011 Allergy to milk products; E44.1 Mild protein-calorie malnutrition; J40 Bronchitis, not specified as acute or chronic
CPT/HCPCS: 36415; 71045; 80048; 80061; 80305; 82550; 82553; 83605; 83735; 83880; 84443; 84484; 87804; 93005; 93970; 96374; 99285; J1650; J1940; J2270; J7611

== ENCOUNTER 2019-03-23 13:24 | Inpatient (IN) | payer MEDICAID ==
[~2019-03-23] VITALS: Ht 185.4 cm; Wt 117.9 kg
[~2019-03-23 13:24] MED LIST changes: +ALBU18HF2 IH; -AZIT500T5 PO; -COR3 PO; +FURO20TA4 PO; -FURO40TA5 PO; -LISI-186 PO; +LISI10TA5 PO; +METO100T16 PO; -SPIR25TA6 PO
[2019-03-23] MEDS ORDERED: MORPHINE SULFATE 4 MG/ML CPJ (NOT FOR IM USE) IV STA (13:47)
[2019-03-23] MEDS ORDERED: FAMOTIDINE 20MG/2ML VIAL IV STA (13:47)
[2019-03-23] MEDS ORDERED: ONDANSETRON HCL 4MG/2ML INJ IV STA (13:47)
[2019-03-23] MEDS ORDERED: ALBUTEROL (0.083%) 2.5MG/3ML NEB HHN STA (13:47)
[2019-03-23] MEDS ORDERED: FUROSEMIDE 20MG/2ML VIAL IVP ONE (14:00)
[2019-03-23 14:33] LABS: BASOPHILS % 0.6 % (0.0-2.0); EOSINOPHILS % 0.1 % (0.0-5.0); HEMATOCRIT. 34.9 % (42.0-52.0); HEMOGLOBIN. 11.3 g/dL (14.0-18.0); MEAN CORPUSCULAR HEMOGLOBIN 30.9 pg (28.0-32.0); MEAN CORPUSCULAR VOLUME 95.3 fL (80.0-94.0); MEAN PLATELET VOLUME 7.4 fl (7.4-10.4); MONOCYTES % 13.5 % (2.0-8.0); NEUTROPHILS % 76.8 % (40.0-76.0); PLATELET 412 x1000/uL (130-400); RED BLOOD CELL COUNT 3.66 mill/uL (4.7-6.1); RED CELL DISTRIBUTION WIDTH 17.8 % (11.6-14.6)
[2019-03-23 14:36] LABS: CHLORIDE 104 mEq/L (98-107)
[2019-03-23 14:40] LABS: INR 0.9; PARTIAL THROMBOPLASTIN TIME 25.4 sec (23.4-31.0); PROTHROMBIN TIME 9.5 sec (9.6-11.0)
[2019-03-23 15:07] LABS: CLARITY URINE CLEAR (CLEAR); COLOR URINE YELLOW (YELLOW); KETONES URINE NEGATIVE (NEGATIVE); LEUKOCYTE ESTERASE URINE NEGATIVE (NEGATIVE); NITRITE URINE NEGATIVE (NEGATIVE); OCCULT BLOOD URINE NEGATIVE (NEGATIVE); PROTEIN URINE TRACE (NEGATIVE); UROBILINOGEN URINE 0.2 E.U./dL (0.2-1.0)
[2019-03-23] MEDS ORDERED: LEVOFLOXACIN 500MG PREMIX 100 ML IV ONE (15:15)
[2019-03-23 15:34] LABS: *AMPHETAMINES SCREEN URINE NEGATIVE (NEGATIVE); *BARBITURATES SCREEN URINE NEGATIVE (NEGATIVE); *BENZODIAZEPINES SCREEN URINE NEGATIVE (NEGATIVE); *COCAINE SCREEN URINE NEGATIVE (NEGATIVE); METHADONE URINE SCREEN NEGATIVE (NEGATIVE)
[2019-03-23 15:35] LABS: CANNABINOID URINE SCREEN NEGATIVE (NEGATIVE); OPIATES URINE SCREEN NEGATIVE (NEGATIVE); PHENCYCLIDINE URINE SCREEN NEGATIVE (NEGATIVE)
[2019-03-23] MEDS ORDERED: IPRATROPIUM/ALBUTEROL 0.5-3(2.5)MG/3ML NEB HHN PRN (16:45)
[2019-03-23 21:00] VITALS: BP 136/88
[2019-03-23] MEDS ORDERED: FURO40TA5 PO (21:50)
[2019-03-23] MEDS ORDERED: METO5TAB69 PO (22:23)
[2019-03-23] MEDS ORDERED: METF-414 PO (22:24)
[2019-03-23] MEDS ORDERED: HYDR-4133 PO (22:24)
[2019-03-23] MEDS ORDERED: SACU1TAB PO (22:25)
[2019-03-23] MEDS ORDERED: SPIR25TA6 PO (22:26)
[2019-03-23] MEDS ORDERED: CARV12.545 PO (22:26)
[2019-03-24 00:11] VITALS: BP 120/81
[2019-03-24 04:00] VITALS: BP 115/71
[2019-03-24 06:26] LABS: HEMATOCRIT. 35.7 % (42.0-52.0); HEMOGLOBIN. 11.6 g/dL (14.0-18.0); MEAN CORPUSCULAR HEMOGLOBIN 30.9 pg (28.0-32.0); MEAN PLATELET VOLUME 7.4 fl (7.4-10.4); PLATELET 408 x1000/uL (130-400); RED BLOOD CELL COUNT 3.76 mill/uL (4.7-6.1); RED CELL DISTRIBUTION WIDTH 17.4 % (11.6-14.6)
[2019-03-24 08:28] LABS: CHLORIDE 102 mEq/L (98-107)
[2019-03-24] MEDS ORDERED: DOCUSATE SODIUM 100MG CAPSULE PO PRN (08:45)
[2019-03-24] MEDS ORDERED: CLONIDINE 0.1MG TABLET PO PRN (08:45)
[2019-03-24] MEDS ORDERED: ONDANSETRON HCL 4MG/2ML INJ IV PRN (08:45)
[2019-03-24] MEDS ORDERED: GUAIFENESIN 200MG/10ML SUGAR FREE UDC PO PRN (08:45)
[2019-03-24 09:00] LABS: CREATINE KINASE 97 IU/L (39-308)
[2019-03-24 09:04] LABS: CREATINE KINASE MB FRACTION 4.4 ng/mL (0.5-3.6)
[2019-03-24] MEDS: FUROSEMIDE 40MG/4ML VIAL IVP SCH (09:12)
[2019-03-24 11:33] VITALS: BP 112/80
[2019-03-24] MEDS: IPRATROPIUM/ALBUTEROL 0.5-3(2.5)MG/3ML NEB HHN SCH ×2 (12:30→20:29)
[2019-03-24 15:21] VITALS: BP 113/73
[2019-03-24 15:45] LABS: PLATELET ESTIMATE INCREASED
[2019-03-24 17:42] LABS: CREATINE KINASE 105 IU/L (39-308)
[2019-03-24 17:43] LABS: CREATINE KINASE MB FRACTION 3.9 ng/mL (0.5-3.6)
[2019-03-24 20:27] VITALS: BP 113/77
[2019-03-24] MEDS: BUDESONIDE 0.5MG/2ML NEB HHN SCH (20:29)
[2019-03-25] VITALS: BP 105/73
[2019-03-25] MEDS: IPRATROPIUM/ALBUTEROL 0.5-3(2.5)MG/3ML NEB HHN SCH ×4 (00:49→16:31)
[2019-03-25 04:00] VITALS: BP 108/73
[2019-03-25] MEDS ORDERED: NITROGLYCERIN SL SCH (07:30)
[2019-03-25] MEDS ORDERED: DEXTROSE 50% WATER 50ML SYRINGE IV PRN (07:45)
[2019-03-25 08:00] VITALS: BP 116/79
[2019-03-25] MEDS ORDERED: PANTOPRAZOLE 40MG DR TABLET PO SCH (08:30)
[2019-03-25] MEDS ORDERED: NITROGLYCERIN 0.4MG TABLET SL SL PRN (08:30)
[2019-03-25] MEDS: BUDESONIDE 0.5MG/2ML NEB HHN SCH (08:35)
[2019-03-25] MEDS ORDERED: ACETAMINOPHEN 325MG TABLET PO PRN (08:45)
[2019-03-25] MEDS ORDERED: ASPIRIN 81MG EC TABLET PO SCH (09:00)
[2019-03-25] MEDS ORDERED: HYDRALAZINE HCL 10MG TABLET PO SCH (09:00)
[2019-03-25] MEDS ORDERED: MEDICATION NOT ON FORMULARY EA (Sacubitril/Valsartan (Entresto 24 mg-26 mg Tablet) 1 EAC PO SCH (09:00)
[2019-03-25] MEDS ORDERED: LISINOPRIL 10MG TABLET PO SCH (09:00)
[2019-03-25] MEDS ORDERED: MEDICATION NOT ON FORMULARY EA (Aspirin (Aspirin Ec) 1 TAB) MT SCH (09:00)
[2019-03-25] MEDS ORDERED: HYDRALAZINE HCL PO SCH (09:00)
[2019-03-25] MEDS ORDERED: MEDICATION NOT ON FORMULARY EA (Metoprolol Tartrate 100 MG) PO SCH (09:00)
[2019-03-25] MEDS ORDERED: MEDICATION NOT ON FORMULARY EA (Lisinopril 10 MG) PO SCH (09:00)
[2019-03-25] MEDS ORDERED: ATORVASTATIN CALCIUM 10MG TABLET PO SCH (09:00)
[2019-03-25] MEDS ORDERED: MEDICATION NOT ON FORMULARY EA (Metolazone 5 MG) PO SCH (09:00)
[2019-03-25] MEDS: INSULIN LISPRO 100 UNITS/ML SUBCUT SCH ×3 (09:39→17:50)
[2019-03-25] MEDS: CARVEDILOL 12.5MG TABLET PO SCH ×2 (09:43→17:00)
[2019-03-25] MEDS: FUROSEMIDE 40MG/4ML VIAL IVP SCH (09:44)
[2019-03-25] MEDS ORDERED: SACUBITRIL/VALSARTAN 24/26 TAB PO SCH (10:00)
[2019-03-25] MEDS ORDERED: METOLAZONE 5MG TABLET PO SCH (10:15)
[2019-03-25] MEDS ORDERED: METOPROLOL TARTRATE 100MG TABLET PO SCH (10:17)
[2019-03-25 12:00] VITALS: BP 109/81
[2019-03-25] MEDS: BLOOD SUGAR DIAGNOSTIC STRIP TEST SCH ×2 (12:35→17:20)
[2019-03-25 13:06] VITALS: BP 109/81
[2019-03-25 16:00] VITALS: BP 109/81
[2019-03-26] MEDS ORDERED: MEDICATION NOT ON FORMULARY EA (Pantoprazole Sodium 40 MG) PO SCH (07:20)
== END 2019-03-25 18:43 | disposition home or self-care (01) | DRG 194 ==
LOC: ER 13:24 → 6WST 15:42 → EDBEDREQ 15:47 → EDBEDREQSVC 15:47 → ENRESERV 20:21
PROVIDERS: ADMIT Internal Medicine; ATTEND Internal Medicine
DX: I13.0 Hypertensive heart and chronic kidney disease with heart failure and stage 1 through stage 4 chronic kidney disease, or unspecified chronic kidney disease (principal); J96.00 Acute respiratory failure, unspecified whether with hypoxia or hypercapnia; N17.0 Acute kidney failure with tubular necrosis; R07.81 Pleurodynia; I50.43 Acute on chronic combined systolic (congestive) and diastolic (congestive) heart failure; E11.22 Type 2 diabetes mellitus with diabetic chronic kidney disease; I24.9 Acute ischemic heart disease, unspecified; I42.9 Cardiomyopathy, unspecified; D53.9 Nutritional anemia, unspecified; E11.65 Type 2 diabetes mellitus with hyperglycemia; F19.10 Other psychoactive substance abuse, uncomplicated; E78.5 Hyperlipidemia, unspecified; F17.210 Nicotine dependence, cigarettes, uncomplicated; J44.0 Chronic obstructive pulmonary disease with (acute) lower respiratory infection; N18.2 Chronic kidney disease, stage 2 (mild); Z79.84 Long term (current) use of oral hypoglycemic drugs; Z79.899 Other long term (current) drug therapy; Z79.82 Long term (current) use of aspirin
CPT/HCPCS: 36415; 71045; 74176; 80048; 80061; 80305; 82550; 82553; 82962; 83605; 83735; 83880; 84145; 84443; 84484; 86850; 86900; 93005; 94640; 96365; 96375; 99291; J1815; J1940; J1956; J2270; J2405; J3490; J7611; J7620; J7626

== ENCOUNTER 2020-01-23 16:50 | Inpatient (IN) | payer MEDICAID ==
[~2020-01-23] VITALS: Ht 182.9 cm; Wt 117.9 kg
[~2020-01-23 16:50] MED LIST changes: +CARV12.545 PO; +FURO40TA5 PO; +HYDR-4133 PO; +METF-414 PO; +METO5TAB7 PO; +SACU1TAB PO; +SPIR25TA6 PO
[2020-01-23] MEDS ORDERED: ALBUTEROL (0.083%) 2.5MG/3ML NEB HHN STA (17:01)
[2020-01-23] MEDS ORDERED: ONDANSETRON HCL 4MG/2ML INJ IV STA (17:01)
[2020-01-23] MEDS ORDERED: LABETALOL 5MG/ML SYR 20 MG/4 ML SYRINGE IV ONE (17:15)
[2020-01-23] MEDS ORDERED: KETOROLAC 30MG/ML VIAL IV ONE (17:15)
[2020-01-23 17:35] LABS: CHLORIDE 103 mEq/L (98-107)
[2020-01-23 17:39] LABS: BASOPHILS % 0.9 % (0.0-2.0); EOSINOPHILS % 0.6 % (0.0-5.0); HEMATOCRIT. 36.7 % (42.0-52.0); HEMOGLOBIN. 12.1 g/dL (14.0-18.0); LYMPHOCYTES % 11.3 % (20.0-50.0); MEAN CORPUSCULAR HEMOGLOBIN 32.8 pg (28.0-32.0); MEAN CORPUSCULAR VOLUME 99.6 fL (80.0-94.0); MEAN PLATELET VOLUME 7.7 fl (7.4-10.4); MONOCYTES % 12.7 % (2.0-8.0); NEUTROPHILS % 74.5 % (40.0-76.0); PLATELET 361 x1000/uL (130-400); RED BLOOD CELL COUNT 3.69 mill/uL (4.7-6.1); RED CELL DISTRIBUTION WIDTH 17.9 % (11.6-14.6)
[2020-01-23] MEDS ORDERED: OSELTAMIVIR 75MG CAPSULE PO ONE (21:30)
[2020-01-23] MEDS ORDERED: SODIUM CHLORIDE 0.9% 1,000 ML IV ONE ×2 (21:30)
[2020-01-23] MEDS ORDERED: SODIUM CHLORIDE 0.9% 500 ML IV ONE (21:30)
[2020-01-23] MEDS ORDERED: MORPHINE SULFATE 4 MG/ML CPJ (NOT FOR IM USE) IV ONE (21:30)
[2020-01-23] MEDS ORDERED: IPRATROPIUM/ALBUTEROL 0.5-3(2.5)MG/3ML NEB HHN PRN (22:15)
[2020-01-23] MEDS ORDERED: ZOLPIDEM TARTRATE 5MG TABLET PO PRN (22:15)
[2020-01-23] MEDS ORDERED: DEXTROSE 50% WATER 50ML SYRINGE IV PRN (22:15)
[2020-01-23] MEDS ORDERED: ACETAMINOPHEN 325MG TABLET PO PRN (22:15)
[2020-01-23] MEDS ORDERED: ONDANSETRON HCL 4MG/2ML INJ IV PRN (22:15)
[2020-01-23] MEDS ORDERED: OSELTAMIVIR 75MG CAPSULE PO SCH (22:45)
[2020-01-23] MEDS: SODIUM CHLORIDE 0.9% 1,000 ML IV SCH (23:25)
[2020-01-24 00:45] VITALS: BP 116/80
[2020-01-24] MEDS ORDERED: GLIPIZIDE (02:27)
[2020-01-24 04:00] VITALS: BP 101/60
[2020-01-24] MEDS ORDERED: Vitamin D (04:42)
[2020-01-24 06:14] LABS: CHLORIDE 109 mEq/L (98-107)
[2020-01-24 06:25] LABS: HEMATOCRIT. 31.8 % (42.0-52.0); HEMOGLOBIN. 10.5 g/dL (14.0-18.0); MEAN CORPUSCULAR HEMOGLOBIN 32.8 pg (28.0-32.0); MEAN CORPUSCULAR VOLUME 99.5 fL (80.0-94.0); MEAN PLATELET VOLUME 7.6 fl (7.4-10.4); PLATELET 333 x1000/uL (130-400)
[2020-01-24] MEDS: BLOOD SUGAR DIAGNOSTIC STRIP TEST SCH ×4 (06:47→20:26)
[2020-01-24] MEDS: INSULIN LISPRO 100 UNITS/ML SUBCUT SCH ×4 (06:48→20:25)
[2020-01-24 08:00] VITALS: BP 117/78
[2020-01-24] MEDS: KETOROLAC 30MG/ML VIAL IV PRN ×2 (10:25→18:36)
[2020-01-24] MEDS: SODIUM CHLORIDE 0.9% 1,000 ML IV SCH (11:58)
[2020-01-24 12:00] VITALS: BP 90/66
[2020-01-24 16:00] VITALS: BP 100/73
[2020-01-24 16:43] LABS: PLATELET ESTIMATE NORMAL
[2020-01-24] MEDS: BENZONATATE 100MG CAPSULE PO PRN (16:47)
[2020-01-24 20:00] VITALS: BP 107/63
[2020-01-25] VITALS: BP 120/76
[2020-01-25] MEDS: BENZONATATE 100MG CAPSULE PO PRN (00:41)
[2020-01-25] MEDS: SODIUM CHLORIDE 0.9% 1,000 ML IV SCH (00:48)
[2020-01-25 04:00] VITALS: BP 99/66
[2020-01-25] MEDS: INSULIN LISPRO 100 UNITS/ML SUBCUT SCH ×2 (06:02→11:45)
[2020-01-25] MEDS: BLOOD SUGAR DIAGNOSTIC STRIP TEST SCH ×2 (06:02→11:45)
[2020-01-25 07:13] LABS: HEMATOCRIT. 29.8 % (42.0-52.0); HEMOGLOBIN. 9.9 g/dL (14.0-18.0); MEAN CORPUSCULAR VOLUME 99.8 fL (80.0-94.0); MEAN PLATELET VOLUME 7.7 fl (7.4-10.4); PLATELET 338 x1000/uL (130-400); RED BLOOD CELL COUNT 2.98 mill/uL (4.7-6.1); RED CELL DISTRIBUTION WIDTH 17.9 % (11.6-14.6)
[2020-01-25 08:00] VITALS: BP 109/69
[2020-01-25 08:19] LABS: CHLORIDE 110 mEq/L (98-107)
[2020-01-25 12:41] VITALS: BP 135/53
[2020-01-25] MEDS ORDERED: BENZ-16 MT (12:41)
[2020-01-25 13:38] LABS: PLATELET ESTIMATE NORMAL
== END 2020-01-25 16:00 | disposition home or self-care (01) | DRG 145 ==
LOC: ER 16:50 → 5WST 21:47 → ENRESERV 23:42
PROVIDERS: ADMIT Internal Medicine; ATTEND Internal Medicine
DX: J20.9 Acute bronchitis, unspecified (principal); I27.20 Pulmonary hypertension, unspecified; I11.0 Hypertensive heart disease with heart failure; I50.22 Chronic systolic (congestive) heart failure; I07.1 Rheumatic tricuspid insufficiency; D64.9 Anemia, unspecified; E11.9 Type 2 diabetes mellitus without complications; J06.9 Acute upper respiratory infection, unspecified; E66.9 Obesity, unspecified; F12.90 Cannabis use, unspecified, uncomplicated; G47.33 Obstructive sleep apnea (adult) (pediatric); Z91.011 Allergy to milk products; Z79.899 Other long term (current) drug therapy; Z71.89 Other specified counseling; Z68.35 Body mass index [BMI] 35.0-35.9, adult
CPT/HCPCS: 36415; 71045; 80048; 80053; 82962; 83605; 83880; 84145; 84484; 85025; 87804; 93005; 94640; 99291; J1815; J1885; J2270; J2405; J7030

== ENCOUNTER 2021-07-13 15:36 | Inpatient (IN) | payer MEDICAID ==
[~2021-07-13] VITALS: Ht 185.4 cm; Wt 102.5 kg
[~2021-07-13 15:36] MED LIST changes: -ASPI-1158 MT; +ASPI-1406 MT; +BENZ-16 MT; -FURO20TA4 PO; +GLIPIZIDE; +LISI10TA26 PO; -LISI10TA5 PO; -PANT40TA4 PO; +PANT40TA51 PO; +Vitamin D
[2021-07-13] MEDS: ALBUTEROL (0.083%) 2.5MG/3ML NEB HHN SCH ×3 (21:11→21:54)
[2021-07-13 21:20] LABS: HEMATOCRIT. 36.6 % (42.0-52.0); HEMOGLOBIN. 11.9 g/dL (14.0-18.0); MEAN CORPUSCULAR HEMOGLOBIN 29.8 pg (28.0-32.0); MEAN PLATELET VOLUME 7.7 fl (7.4-10.4); PLATELET 430 x1000/uL (130-400); RED BLOOD CELL COUNT 3.98 mill/uL (4.7-6.1); RED CELL DISTRIBUTION WIDTH 20.3 % (11.6-14.6)
[2021-07-13 21:27] LABS: CHLORIDE 105 mEq/L (98-107)
[2021-07-13 21:34] LABS: PARTIAL THROMBOPLASTIN TIME 26.6 sec (23.4-31.0); PROTHROMBIN TIME 10.3 sec (9.6-11.0)
[2021-07-13] MEDS ORDERED: CEFTRIAXONE 1 G PREMIX 50 ML IV ONE (21:45)
[2021-07-13] MEDS ORDERED: AZITHROMYCIN 500 MG in DEXT 5% WATER 250 ML IV SCH (21:45)
[2021-07-13 21:54] LABS: PLATELET ESTIMATE INCREASED
[2021-07-13] MEDS ORDERED: FUROSEMIDE 20MG/2ML VIAL IVP ONE (23:15)
[2021-07-14 08:05] LABS: CLARITY URINE CLEAR (CLEAR); COLOR URINE YELLOW (YELLOW); KETONES URINE TRACE (NEGATIVE); LEUKOCYTE ESTERASE URINE NEGATIVE (NEGATIVE); NITRITE URINE NEGATIVE (NEGATIVE); OCCULT BLOOD URINE NEGATIVE (NEGATIVE); PROTEIN URINE TRACE (NEGATIVE); SPECIFIC GRAVITY URINE 1.017 (1.005-1.030); UROBILINOGEN URINE 0.2 E.U./dL (0.2-1.0)
[2021-07-14 11:52] VITALS: BP 118/50
[2021-07-14 12:00] VITALS: BP 97/67
[2021-07-14] MEDS ORDERED: SACU1TAB7 MT (12:03)
[2021-07-14] MEDS ORDERED: IPRATROPIUM/ALBUTEROL 0.5-3(2.5)MG/3ML NEB HHN PRN (12:30)
[2021-07-14] MEDS ORDERED: ONDANSETRON HCL 4MG/2ML INJ IV PRN (12:30)
[2021-07-14] MEDS: FAMOTIDINE 20MG TABLET PO SCH ×2 (14:30→22:28)
[2021-07-14] MEDS: METHYLPREDNISOLONE SOD SUCC 40 MG/ML VIAL IV SCH ×2 (14:30→22:27)
[2021-07-14 16:00] VITALS: BP 106/78
[2021-07-14] MEDS: IPRATROPIUM/ALBUTEROL 0.5-3(2.5)MG/3ML NEB HHN SCH ×2 (16:31→21:07)
[2021-07-14 20:00] VITALS: BP 104/59
[2021-07-14] MEDS: ACETYLCYSTEINE 100MG/ML 10% VIAL 4ML INH SCH (21:07)
[2021-07-14] MEDS: GUAIFENESIN 600MG ER TABLET PO SCH (22:28)
[2021-07-14] MEDS: ACETAMINOPHEN 325MG TABLET PO PRN (22:36)
[2021-07-15] VITALS: BP 110/83
[2021-07-15] MEDS: IPRATROPIUM/ALBUTEROL 0.5-3(2.5)MG/3ML NEB HHN SCH ×7 (00:33→20:30)
[2021-07-15 04:00] VITALS: BP 93/61
[2021-07-15 05:45] LABS: HEMATOCRIT. 34.2 % (42.0-52.0); HEMOGLOBIN. 10.9 g/dL (14.0-18.0); MEAN CORPUSCULAR HEMOGLOBIN 29.6 pg (28.0-32.0); MEAN CORPUSCULAR VOLUME 92.7 fL (80.0-94.0); PLATELET 390 x1000/uL (130-400); RED BLOOD CELL COUNT 3.68 mill/uL (4.7-6.1); RED CELL DISTRIBUTION WIDTH 19.8 % (11.6-14.6)
[2021-07-15] MEDS: METHYLPREDNISOLONE SOD SUCC 40 MG/ML VIAL IV SCH ×2 (06:19→13:20)
[2021-07-15] MEDS ORDERED: DEXTROSE 50% WATER 50ML SYRINGE IV PRN (07:00)
[2021-07-15] MEDS: BLOOD SUGAR DIAGNOSTIC STRIP TEST SCH ×4 (07:11→20:57)
[2021-07-15 08:07] VITALS: BP 109/87
[2021-07-15] MEDS: ACETYLCYSTEINE 100MG/ML 10% VIAL 4ML INH SCH ×2 (08:34→16:08)
[2021-07-15] MEDS: GUAIFENESIN 600MG ER TABLET PO SCH ×2 (08:35→21:18)
[2021-07-15] MEDS: FAMOTIDINE 20MG TABLET PO SCH ×2 (08:35→21:18)
[2021-07-15] MEDS: FUROSEMIDE 20MG/2ML VIAL IVP SCH (08:35)
[2021-07-15] MEDS: INSULIN LISPRO 100 UNITS/ML SUBCUT SCH ×4 (08:36→21:19)
[2021-07-15] MEDS: INSULIN GLARGINE UD 100 UNITS/ML SYR SUBCUT SCH ×2 (10:30→21:29)
[2021-07-15 11:01] VITALS: BP 104/65
[2021-07-15 13:28] LABS: *BARBITURATES SCREEN URINE NEGATIVE (NEGATIVE); *BENZODIAZEPINES SCREEN URINE NEGATIVE (NEGATIVE); *COCAINE SCREEN URINE NEGATIVE (NEGATIVE)
[2021-07-15 13:29] LABS: METHADONE URINE SCREEN NEGATIVE (NEGATIVE); OPIATES URINE SCREEN NEGATIVE (NEGATIVE); PHENCYCLIDINE URINE SCREEN NEGATIVE (NEGATIVE)
[2021-07-15 13:32] LABS: *AMPHETAMINES SCREEN URINE NEGATIVE (NEGATIVE); CANNABINOID URINE SCREEN PRESUMTIVE POSITIVE (NEGATIVE)
[2021-07-15 16:39] VITALS: BP 101/72
[2021-07-15 20:00] VITALS: BP 96/62
[2021-07-15 21:23] LABS: PLATELET ESTIMATE NORMAL
[2021-07-16] VITALS: BP 102/64
[2021-07-16] MEDS: ACETAMINOPHEN 325MG TABLET PO PRN ×2 (00:06→06:55)
[2021-07-16] MEDS: ACETYLCYSTEINE 100MG/ML 10% VIAL 4ML INH SCH ×2 (03:06→08:51)
[2021-07-16] MEDS: IPRATROPIUM/ALBUTEROL 0.5-3(2.5)MG/3ML NEB HHN SCH ×3 (03:07→12:36)
[2021-07-16 04:00] VITALS: BP 104/60
[2021-07-16] MEDS: NITROGLYCERIN 0.4MG TABLET SL SL PRN ×2 (06:44→06:51)
[2021-07-16] MEDS: BLOOD SUGAR DIAGNOSTIC STRIP TEST SCH (06:44)
[2021-07-16 07:58] VITALS: BP 100/66
[2021-07-16] MEDS: FAMOTIDINE 20MG TABLET PO SCH (08:57)
[2021-07-16] MEDS: GUAIFENESIN 600MG ER TABLET PO SCH (08:57)
[2021-07-16] MEDS: INSULIN LISPRO 100 UNITS/ML SUBCUT SCH (08:59)
[2021-07-16] MEDS: FUROSEMIDE 20MG/2ML VIAL IVP SCH (09:00)
[2021-07-16] MEDS ORDERED: PREDNISONE 20MG TABLET PO SCH (09:00)
[2021-07-16] MEDS: INSULIN GLARGINE UD 100 UNITS/ML SYR SUBCUT SCH (09:49)
[2021-07-16] MEDS ORDERED: HYDROCODONE/ACETAMINOPHEN 5/325MG TABLET PO NR (10:45)
[2021-07-16 11:34] VITALS: BP 102/74
[2021-07-16 13:53] VITALS: BP 102/74
== END 2021-07-16 15:30 | disposition home or self-care (01) | DRG 140 ==
LOC: ER 15:36 → EDBEDREQ 07-14 00:06 → EDBEDREQTM 07-14 00:06 → MICUSO 07-14 03:42 → 6WST 07-14 07:46
PROVIDERS: ADMIT Internal Medicine; ATTEND Internal Medicine
DX: J44.0 Chronic obstructive pulmonary disease with (acute) lower respiratory infection (principal); N17.0 Acute kidney failure with tubular necrosis; I50.23 Acute on chronic systolic (congestive) heart failure; J18.9 Pneumonia, unspecified organism; R65.10 Systemic inflammatory response syndrome (SIRS) of non-infectious origin without acute organ dysfunction; I11.0 Hypertensive heart disease with heart failure; E11.9 Type 2 diabetes mellitus without complications; D64.9 Anemia, unspecified; F12.90 Cannabis use, unspecified, uncomplicated; J44.1 Chronic obstructive pulmonary disease with (acute) exacerbation; F17.210 Nicotine dependence, cigarettes, uncomplicated; Z20.822 Contact with and (suspected) exposure to COVID-19; Z79.899 Other long term (current) drug therapy; Z91.011 Allergy to milk products; Z79.82 Long term (current) use of aspirin; Z79.84 Long term (current) use of oral hypoglycemic drugs; Z71.6 Tobacco abuse counseling
CPT/HCPCS: 36415; 71045; 80048; 80053; 80305; 81003; 82962; 83036; 83605; 83880; 84484; 85025; 87426; 93005; 93306; 94640; 99285; C1893; J0456; J0696; J1815; J1940; J2920; J7060; J7512; J7608

== ENCOUNTER 2022-05-18 17:13 | Inpatient (IN) | payer MEDICAID, OTHER ==
[~2022-05-18] VITALS: Ht 185.4 cm; Wt 103.3 kg
[~2022-05-18 17:13] MED LIST changes: +SACU1TAB7 MT
[2022-05-18] MEDS ORDERED: MORPHINE SULFATE 4 MG/ML CPJ (NOT FOR IM USE) IV ONE (21:00)
[2022-05-18] MEDS ORDERED: ONDANSETRON HCL 4MG/2ML INJ IV ONE (21:00)
[2022-05-18] MEDS ORDERED: SODIUM CHLORIDE 0.9% 1,000 ML IV ONE (21:00)
[2022-05-18 21:08] LABS: HEMATOCRIT. 40.1 % (42.0-52.0); MEAN CORPUSCULAR HEMOGLOBIN 30.5 pg (28.0-32.0); MEAN CORPUSCULAR VOLUME 94.5 fL (80.0-94.0); MEAN PLATELET VOLUME 8.1 fl (7.4-10.4); PLATELET 344 x1000/uL (130-400); RED BLOOD CELL COUNT 4.25 mill/uL (4.7-6.1); RED CELL DISTRIBUTION WIDTH 17.5 % (11.6-14.6)
[2022-05-18 21:12] LABS: CHLORIDE 80 mEq/L (98-107)
[2022-05-18 22:14] LABS: PLATELET ESTIMATE NORMAL
[2022-05-18] MEDS ORDERED: POTASSIUM CHLORIDE 20MEQ TABLET SR PO NR (23:15)
[2022-05-18 23:52] LABS: CLARITY URINE CLEAR (CLEAR); COLOR URINE YELLOW (YELLOW); KETONES URINE 1+ (NEGATIVE); LEUKOCYTE ESTERASE URINE NEGATIVE (NEGATIVE); NITRITE URINE NEGATIVE (NEGATIVE); OCCULT BLOOD URINE NEGATIVE (NEGATIVE); PROTEIN URINE 1+ (NEGATIVE); SPECIFIC GRAVITY URINE 1.016 (1.005-1.030)
[2022-05-19] VITALS (7 sets, daily range): BP systolic 87–128; BP diastolic 51–81
[2022-05-19] MEDS ORDERED: ONDANSETRON HCL 4MG/2ML INJ IV PRN (02:45)
[2022-05-19] MEDS ORDERED: DEXTROSE 50% WATER 50ML SYRINGE IV PRN (02:45)
[2022-05-19] MEDS: SODIUM CHLORIDE 0.9% 1,000 ML IV SCH ×3 (03:26→22:45)
[2022-05-19] MEDS: HYDROCODONE/ACETAMINOPHEN 10/325MG TABLET PO PRN ×3 (03:26→19:54)
[2022-05-19] MEDS ORDERED: ATOR20TA65 MT (05:04)
[2022-05-19 05:53] LABS: HEMATOCRIT. 34.9 % (42.0-52.0); HEMOGLOBIN. 11.4 g/dL (14.0-18.0); MEAN CORPUSCULAR HEMOGLOBIN 30.7 pg (28.0-32.0); MEAN CORPUSCULAR VOLUME 94.4 fL (80.0-94.0); MEAN PLATELET VOLUME 8.3 fl (7.4-10.4); PLATELET 321 x1000/uL (130-400); RED CELL DISTRIBUTION WIDTH 17.2 % (11.6-14.6)
[2022-05-19] MEDS ORDERED: *PATIENT'S OWN MEDICATION STORAGE XX SCH (06:30)
[2022-05-19] MEDS: BLOOD SUGAR DIAGNOSTIC STRIP TEST SCH ×4 (07:20→21:26)
[2022-05-19] MEDS: INSULIN LISPRO 100 UNITS/ML SUBCUT SCH ×4 (07:50→21:36)
[2022-05-19] MEDS: INSULIN GLARGINE 100 UNITS/ML SUBCUT SCH ×2 (10:45→21:36)
[2022-05-19] MEDS ORDERED: POTASSIUM CHLORIDE 20MEQ TABLET SR PO SCH (11:30)
[2022-05-19] MEDS: OMEPRAZOLE 20MG CAPSULE EXTENDED RELEASE PO SCH (13:40)
[2022-05-19 15:05] LABS: PLATELET ESTIMATE NORMAL
[2022-05-19] MEDS ORDERED: NALOXONE HCL 0.4MG/ML VIAL IV PRN (18:45)
[2022-05-19] MEDS: ENOXAPARIN 30MG/0.3ML SYR SUBCUT SCH (18:50)
[2022-05-19] MEDS: ATORVASTATIN CALCIUM 20MG TABLET PO SCH (21:35)
[2022-05-20] VITALS (7 sets, daily range): BP systolic 100–135; BP diastolic 57–81
[2022-05-20] MEDS: ENOXAPARIN 30MG/0.3ML SYR SUBCUT SCH (05:30)
[2022-05-20] MEDS: OMEPRAZOLE 20MG CAPSULE EXTENDED RELEASE PO SCH (05:30)
[2022-05-20] MEDS: HYDROCODONE/ACETAMINOPHEN 10/325MG TABLET PO PRN ×2 (05:30→13:17)
[2022-05-20] MEDS: SODIUM CHLORIDE 0.9% 1,000 ML IV SCH ×2 (05:36→17:56)
[2022-05-20] MEDS: BLOOD SUGAR DIAGNOSTIC STRIP TEST SCH ×4 (06:56→21:44)
[2022-05-20 08:07] LABS: HEMATOCRIT. 31.9 % (42.0-52.0); HEMOGLOBIN. 10.5 g/dL (14.0-18.0); MEAN CORPUSCULAR HEMOGLOBIN 31.1 pg (28.0-32.0); MEAN CORPUSCULAR VOLUME 94.8 fL (80.0-94.0); MEAN PLATELET VOLUME 8.4 fl (7.4-10.4); PLATELET 283 x1000/uL (130-400); RED BLOOD CELL COUNT 3.36 mill/uL (4.7-6.1); RED CELL DISTRIBUTION WIDTH 17.8 % (11.6-14.6)
[2022-05-20] MEDS: INSULIN LISPRO 100 UNITS/ML SUBCUT SCH ×5 (08:33→21:47)
[2022-05-20] MEDS ORDERED: POTASSIUM CHLORIDE 20MEQ TABLET SR PO NR (12:15)
[2022-05-20] MEDS: INSULIN GLARGINE 100 UNITS/ML SUBCUT SCH ×2 (13:05→21:47)
[2022-05-20] MEDS: METOCLOPRAMIDE HCL 10MG/2ML VIAL IV SCH ×2 (18:14→23:48)
[2022-05-20 18:29] LABS: PLATELET ESTIMATE NORMAL
[2022-05-20] MEDS: ATORVASTATIN CALCIUM 20MG TABLET PO SCH (21:44)
[2022-05-21 04:17] VITALS: BP 113/66
[2022-05-21] MEDS: METOCLOPRAMIDE HCL 10MG/2ML VIAL IV SCH ×4 (06:29→23:59)
[2022-05-21] MEDS: SODIUM CHLORIDE 0.9% 1,000 ML IV SCH ×2 (06:29→14:54)
[2022-05-21] MEDS: BLOOD SUGAR DIAGNOSTIC STRIP TEST SCH ×4 (06:29→21:28)
[2022-05-21] MEDS: OMEPRAZOLE 20MG CAPSULE EXTENDED RELEASE PO SCH (06:32)
[2022-05-21 07:03] LABS: HEMATOCRIT. 31.7 % (42.0-52.0); HEMOGLOBIN. 10.2 g/dL (14.0-18.0); MEAN CORPUSCULAR HEMOGLOBIN 30.6 pg (28.0-32.0); MEAN CORPUSCULAR VOLUME 95.3 fL (80.0-94.0); MEAN PLATELET VOLUME 8.6 fl (7.4-10.4); PLATELET 307 x1000/uL (130-400); RED BLOOD CELL COUNT 3.33 mill/uL (4.7-6.1); RED CELL DISTRIBUTION WIDTH 17.5 % (11.6-14.6)
[2022-05-21 07:14] LABS: CHLORIDE 100 mEq/L (98-107)
[2022-05-21 08:00] VITALS: BP 102/69
[2022-05-21] MEDS: ENOXAPARIN 40MG/0.4ML SYR SUBCUT SCH (08:23)
[2022-05-21] MEDS: INSULIN LISPRO 100 UNITS/ML SUBCUT SCH ×4 (08:24→21:27)
[2022-05-21] MEDS: HYDROCODONE/ACETAMINOPHEN 10/325MG TABLET PO PRN ×2 (08:26→15:44)
[2022-05-21] MEDS ORDERED: OMEP20CA14 PO (11:15)
[2022-05-21] MEDS ORDERED: INSU100I28 SQ (11:15)
[2022-05-21 12:00] VITALS: BP 120/85
[2022-05-21] MEDS: INSULIN GLARGINE 100 UNITS/ML SUBCUT SCH ×2 (12:06→21:28)
[2022-05-21] MEDS ORDERED: PANTOPRAZOLE SODIUM 40 MG/VIAL IV SCH (14:45)
[2022-05-21 16:00] VITALS: BP 126/91
[2022-05-21 18:49] LABS: TOTAL IRON BINDING CAPACITY 194 ug/dL (250-450)
[2022-05-21 19:20] LABS: FOLIC ACID (FOLATE) SERUM 14.7 ng/mL (>5.38)
[2022-05-21 20:00] VITALS: BP 112/69
[2022-05-21] MEDS: ATORVASTATIN CALCIUM 20MG TABLET PO SCH ×2 (21:00→21:23)
[2022-05-21] MEDS: PIPERACILLIN/TAZOBACTAM 3.375 G in DEXTROSE 5% WATER 50 ML IV SCH (21:21)
[2022-05-21] MEDS: ONDANSETRON HCL 4MG/2ML INJ IV PRN (21:22)
[2022-05-21] MEDS: ACETAMINOPHEN 325MG TABLET PO PRN (21:23)
[2022-05-21 21:56] LABS: PLATELET ESTIMATE NORMAL
[2022-05-21] MEDS ORDERED: KETOROLAC 15MG/ML VIAL IV NR (23:15)
[2022-05-21 23:51] LABS: HEMATOCRIT 31.4 % (42.0-52.0); MEAN CORPUSCULAR HEMOGLOBIN 30.7 pg (28.0-32.0); MEAN CORPUSCULAR VOLUME 96.7 fL (80.0-94.0); PLATELET 317 x1000/uL (130-400); RED BLOOD CELL COUNT 3.25 mill/uL (4.7-6.1); RED CELL DISTRIBUTION WIDTH 17.5 % (11.6-14.6)
[2022-05-22] VITALS: BP 114/71
[2022-05-22] MEDS: SODIUM CHLORIDE 0.9% 1,000 ML IV SCH
[2022-05-22 04:00] VITALS: BP 116/69
[2022-05-22] MEDS: METOCLOPRAMIDE HCL 10MG/2ML VIAL IV SCH ×4 (06:34→23:45)
[2022-05-22] MEDS: ONDANSETRON HCL 4MG/2ML INJ IV PRN (06:35)
[2022-05-22] MEDS: PIPERACILLIN/TAZOBACTAM 3.375 G in DEXTROSE 5% WATER 50 ML IV SCH ×3 (06:35→21:59)
[2022-05-22] MEDS: BLOOD SUGAR DIAGNOSTIC STRIP TEST SCH ×4 (06:46→21:25)
[2022-05-22 07:14] LABS: CHLORIDE 106 mEq/L (98-107)
[2022-05-22 07:15] LABS: HEMATOCRIT. 32.3 % (42.0-52.0); HEMOGLOBIN. 10.5 g/dL (14.0-18.0); MEAN CORPUSCULAR HEMOGLOBIN 30.6 pg (28.0-32.0); MEAN CORPUSCULAR VOLUME 94.2 fL (80.0-94.0); MEAN PLATELET VOLUME 8.2 fl (7.4-10.4); PLATELET 342 x1000/uL (130-400); RED BLOOD CELL COUNT 3.43 mill/uL (4.7-6.1); RED CELL DISTRIBUTION WIDTH 17.7 % (11.6-14.6)
[2022-05-22 07:41] VITALS: BP 117/72
[2022-05-22] MEDS: INSULIN LISPRO 100 UNITS/ML SUBCUT SCH ×4 (08:50→22:57)
[2022-05-22] MEDS: PANTOPRAZOLE SODIUM 40 MG/VIAL IV SCH ×2 (08:51→21:59)
[2022-05-22] MEDS: ENOXAPARIN 40MG/0.4ML SYR SUBCUT SCH (08:51)
[2022-05-22] MEDS: INSULIN GLARGINE 100 UNITS/ML SUBCUT SCH ×2 (09:25→23:31)
[2022-05-22] MEDS ORDERED: KCL 20MEQ/100ML PREMIX 100 ML IV NR (11:00)
[2022-05-22] MEDS ORDERED: BISACODYL 10MG SUPP PR NR (11:00)
[2022-05-22 11:34] VITALS: BP 98/63
[2022-05-22] MEDS ORDERED: SODIUM CHLORIDE 0.9% 500 ML IV NR (13:30)
[2022-05-22] MEDS: DEXT 5%/0.9% NACL KCL 20MEQ/L 1,000 ML IV SCH ×2 (13:43→20:00)
[2022-05-22 15:47] VITALS: BP 110/74
[2022-05-22] MEDS: ACETAMINOPHEN 325MG TABLET PO PRN (16:00)
[2022-05-22] MEDS ORDERED: ACETAMINOPHEN 650MG SUPP PR PRN (18:30)
[2022-05-22 20:00] VITALS: BP 105/72
[2022-05-22] MEDS: ATORVASTATIN CALCIUM 20MG TABLET PO SCH ×2 (21:00→21:59)
[2022-05-22 22:03] LABS: PLATELET ESTIMATE NORMAL
[2022-05-23] VITALS: BP 120/80
[2022-05-23] MEDS: DEXT 5%/0.9% NACL KCL 20MEQ/L 1,000 ML IV SCH ×3 (03:37→20:00)
[2022-05-23 04:00] VITALS: BP 104/64
[2022-05-23] MEDS: PIPERACILLIN/TAZOBACTAM 3.375 G in DEXTROSE 5% WATER 50 ML IV SCH ×3 (06:10→22:00)
[2022-05-23] MEDS: METOCLOPRAMIDE HCL 10MG/2ML VIAL IV SCH ×3 (06:10→17:54)
[2022-05-23] MEDS: BLOOD SUGAR DIAGNOSTIC STRIP TEST SCH ×4 (06:47→21:49)
[2022-05-23 07:05] LABS: PROTHROMBIN TIME 11.2 sec (9.6-11.0)
[2022-05-23 07:19] LABS: CHLORIDE 108 mEq/L (98-107)
[2022-05-23 07:22] LABS: HEMATOCRIT. 31.8 % (42.0-52.0); HEMOGLOBIN. 10.3 g/dL (14.0-18.0); MEAN CORPUSCULAR HEMOGLOBIN 30.9 pg (28.0-32.0); MEAN CORPUSCULAR VOLUME 95.4 fL (80.0-94.0); MEAN PLATELET VOLUME 8.1 fl (7.4-10.4); PLATELET 355 x1000/uL (130-400); RED BLOOD CELL COUNT 3.33 mill/uL (4.7-6.1); RED CELL DISTRIBUTION WIDTH 17.6 % (11.6-14.6)
[2022-05-23 08:00] VITALS: BP 107/68
[2022-05-23] MEDS: INSULIN LISPRO 100 UNITS/ML SUBCUT SCH ×4 (08:23→21:00)
[2022-05-23] MEDS: PANTOPRAZOLE SODIUM 40 MG/VIAL IV SCH ×2 (08:37→21:48)
[2022-05-23] MEDS: ENOXAPARIN 40MG/0.4ML SYR SUBCUT SCH (08:37)
[2022-05-23] MEDS ORDERED: NA PHOS,M-B/NA PHOS,DI-BA ENEMA 118ML PR SCH (09:45)
[2022-05-23] MEDS: INSULIN GLARGINE 100 UNITS/ML SUBCUT SCH ×2 (10:00→22:00)
[2022-05-23] MEDS ORDERED: KCL 20MEQ/100ML PREMIX 100 ML IV NR (11:00)
[2022-05-23 12:00] VITALS: BP 131/96
[2022-05-23] MEDS ORDERED: PROPOFOL 200MG/20ML VIAL IV ONE (15:39)
[2022-05-23] MEDS ORDERED: LIDOCAINE HCL 1% 50ML VIAL (10MG/ML) ONE (15:39)
[2022-05-23] MEDS ORDERED: LABETALOL 5MG/ML SYR 20 MG/4 ML SYRINGE IV PRN (16:15)
[2022-05-23] MEDS ORDERED: HYDROMORPHONE HCL/PF 2MG/ML CPJ IV PRN (16:15)
[2022-05-23] MEDS ORDERED: ONDANSETRON HCL 4MG/2ML INJ IV PRN (16:15)
[2022-05-23] MEDS ORDERED: MEPERIDINE HCL/PF 25MG/ML CPJ IV PRN (16:15)
[2022-05-23 16:36] LABS: PLATELET ESTIMATE NORMAL
[2022-05-23 17:30] VITALS: BP 125/87
[2022-05-23 20:00] VITALS: BP 123/80
[2022-05-23] MEDS: ATORVASTATIN CALCIUM 20MG TABLET PO SCH (21:48)
[2022-05-24] VITALS: BP 132/75
[2022-05-24] MEDS: METOCLOPRAMIDE HCL 10MG/2ML VIAL IV SCH ×3 (01:30→13:42)
[2022-05-24 04:00] VITALS: BP 122/90
[2022-05-24] MEDS: DEXT 5%/0.9% NACL KCL 20MEQ/L 1,000 ML IV SCH ×3 (04:00→20:59)
[2022-05-24] MEDS: PIPERACILLIN/TAZOBACTAM 3.375 G in DEXTROSE 5% WATER 50 ML IV SCH ×3 (05:49→22:32)
[2022-05-24] MEDS: BLOOD SUGAR DIAGNOSTIC STRIP TEST SCH ×4 (06:28→21:00)
[2022-05-24 07:14] LABS: HEMOGLOBIN. 10.1 g/dL (14.0-18.0); MEAN CORPUSCULAR HEMOGLOBIN 30.9 pg (28.0-32.0); PLATELET 376 x1000/uL (130-400); RED BLOOD CELL COUNT 3.27 mill/uL (4.7-6.1); RED CELL DISTRIBUTION WIDTH 17.9 % (11.6-14.6)
[2022-05-24 08:00] VITALS: BP 112/72
[2022-05-24] MEDS: PANTOPRAZOLE SODIUM 40 MG/VIAL IV SCH ×2 (09:28→20:59)
[2022-05-24] MEDS: INSULIN LISPRO 100 UNITS/ML SUBCUT SCH ×4 (10:14→21:00)
[2022-05-24] MEDS: INSULIN GLARGINE 100 UNITS/ML SUBCUT SCH ×2 (10:16→21:08)
[2022-05-24] MEDS: ENOXAPARIN 40MG/0.4ML SYR SUBCUT SCH (10:19)
[2022-05-24] MEDS ORDERED: KCL 20MEQ/100ML PREMIX 100 ML IV NR (11:00)
[2022-05-24 12:00] VITALS: BP 134/59
[2022-05-24] MEDS: HYDROCODONE/ACETAMINOPHEN 5/325MG TABLET PO PRN ×3 (12:01→21:04)
[2022-05-24 16:00] VITALS: BP 136/92
[2022-05-24 19:20] LABS: PLATELET ESTIMATE NORMAL
[2022-05-24 20:00] VITALS: BP 125/73
[2022-05-24] MEDS: ATORVASTATIN CALCIUM 20MG TABLET PO SCH (20:59)
[2022-05-24] MEDS: ACETAMINOPHEN 325MG TABLET PO PRN (22:31)
[2022-05-25] VITALS: BP 130/82
[2022-05-25] MEDS: DEXT 5%/0.9% NACL KCL 20MEQ/L 1,000 ML IV SCH ×3 (03:48→21:08)
[2022-05-25 04:00] VITALS: BP 133/79
[2022-05-25] MEDS: PIPERACILLIN/TAZOBACTAM 3.375 G in DEXTROSE 5% WATER 50 ML IV SCH ×3 (06:05→21:08)
[2022-05-25 06:59] LABS: HEMATOCRIT. 31.2 % (42.0-52.0); MEAN CORPUSCULAR HEMOGLOBIN 30.4 pg (28.0-32.0); MEAN CORPUSCULAR VOLUME 94.9 fL (80.0-94.0); MEAN PLATELET VOLUME 7.8 fl (7.4-10.4); PLATELET 420 x1000/uL (130-400); RED BLOOD CELL COUNT 3.29 mill/uL (4.7-6.1); RED CELL DISTRIBUTION WIDTH 18.1 % (11.6-14.6)
[2022-05-25] MEDS: BLOOD SUGAR DIAGNOSTIC STRIP TEST SCH ×4 (07:20→20:18)
[2022-05-25 08:00] VITALS: BP 101/64
[2022-05-25] MEDS: ENOXAPARIN 40MG/0.4ML SYR SUBCUT SCH (08:37)
[2022-05-25] MEDS: PANTOPRAZOLE SODIUM 40 MG/VIAL IV SCH ×2 (08:37→21:09)
[2022-05-25] MEDS: HYDROCODONE/ACETAMINOPHEN 5/325MG TABLET PO PRN ×2 (08:37→21:09)
[2022-05-25] MEDS: INSULIN LISPRO 100 UNITS/ML SUBCUT SCH ×4 (08:40→20:18)
[2022-05-25] MEDS: INSULIN GLARGINE 100 UNITS/ML SUBCUT SCH ×2 (11:06→21:10)
[2022-05-25] MEDS ORDERED: KCL 20MEQ/100ML PREMIX 100 ML IV ONE (12:00)
[2022-05-25 16:00] VITALS: BP 111/60
[2022-05-25 19:46] VITALS: BP 120/70
[2022-05-25] MEDS: ATORVASTATIN CALCIUM 20MG TABLET PO SCH (21:09)
[2022-05-25] MEDS: ONDANSETRON HCL 4MG/2ML INJ IV PRN (23:23)
[2022-05-26 02:32] LABS: PLATELET ESTIMATE INCREASED
[2022-05-26 04:00] VITALS: BP 119/68
[2022-05-26] MEDS: DEXT 5%/0.9% NACL KCL 20MEQ/L 1,000 ML IV SCH ×3 (04:56→21:33)
[2022-05-26 05:44] LABS: HEMATOCRIT. 30.6 % (42.0-52.0); HEMOGLOBIN. 10.1 g/dL (14.0-18.0); MEAN CORPUSCULAR HEMOGLOBIN 31.3 pg (28.0-32.0); MEAN CORPUSCULAR VOLUME 95.2 fL (80.0-94.0); MEAN PLATELET VOLUME 7.8 fl (7.4-10.4); PLATELET 454 x1000/uL (130-400); RED BLOOD CELL COUNT 3.21 mill/uL (4.7-6.1); RED CELL DISTRIBUTION WIDTH 18.3 % (11.6-14.6)
[2022-05-26] MEDS: PIPERACILLIN/TAZOBACTAM 3.375 G in DEXTROSE 5% WATER 50 ML IV SCH ×2 (06:02→13:37)
[2022-05-26 06:12] LABS: CHLORIDE 113 mEq/L (98-107)
[2022-05-26] MEDS: BLOOD SUGAR DIAGNOSTIC STRIP TEST SCH ×4 (06:34→21:58)
[2022-05-26 08:05] VITALS: BP 123/76
[2022-05-26] MEDS: PANTOPRAZOLE SODIUM 40 MG/VIAL IV SCH ×2 (08:53→21:35)
[2022-05-26] MEDS: ENOXAPARIN 40MG/0.4ML SYR SUBCUT SCH (08:53)
[2022-05-26] MEDS: INSULIN LISPRO 100 UNITS/ML SUBCUT SCH ×4 (08:54→21:00)
[2022-05-26] MEDS: HYDROCODONE/ACETAMINOPHEN 5/325MG TABLET PO PRN ×2 (08:57→21:34)
[2022-05-26] MEDS: INSULIN GLARGINE 100 UNITS/ML SUBCUT SCH ×2 (09:31→22:00)
[2022-05-26 12:25] VITALS: BP 116/77
[2022-05-26] MEDS: ONDANSETRON HCL 4MG/2ML INJ IV PRN (13:38)
[2022-05-26 14:17] LABS: NUCLEATED RED BLOOD CELLS 2 /100 WBC; PLATELET ESTIMATE INCREASED
[2022-05-26] MEDS: IPRATROPIUM BROMIDE (0.02%) 0.5MG/2.5ML NEB HHN SCH ×2 (14:47→21:00)
[2022-05-26 16:15] VITALS: BP 117/74
[2022-05-26 20:00] VITALS: BP 118/70
[2022-05-27] VITALS: BP 110/69
[2022-05-27] MEDS: IPRATROPIUM BROMIDE (0.02%) 0.5MG/2.5ML NEB HHN SCH ×3 (00:24→21:00)
[2022-05-27] MEDS: DEXT 5%/0.9% NACL KCL 20MEQ/L 1,000 ML IV SCH ×3 (03:18→22:16)
[2022-05-27 04:00] VITALS: BP 110/73
[2022-05-27] MEDS: HYDROCODONE/ACETAMINOPHEN 5/325MG TABLET PO PRN (04:07)
[2022-05-27] MEDS: BLOOD SUGAR DIAGNOSTIC STRIP TEST SCH ×4 (05:45→21:00)
[2022-05-27 06:34] LABS: HEMATOCRIT. 33.4 % (42.0-52.0); HEMOGLOBIN. 10.8 g/dL (14.0-18.0); MEAN CORPUSCULAR HEMOGLOBIN 30.7 pg (28.0-32.0); MEAN CORPUSCULAR VOLUME 95.1 fL (80.0-94.0); MEAN PLATELET VOLUME 7.4 fl (7.4-10.4); PLATELET 506 x1000/uL (130-400); RED BLOOD CELL COUNT 3.51 mill/uL (4.7-6.1); RED CELL DISTRIBUTION WIDTH 18.1 % (11.6-14.6)
[2022-05-27] MEDS: PANTOPRAZOLE SODIUM 40 MG/VIAL IV SCH ×2 (10:11→22:15)
[2022-05-27] MEDS: ENOXAPARIN 40MG/0.4ML SYR SUBCUT SCH (10:11)
[2022-05-27] MEDS ORDERED: MORPHINE SULFATE 4 MG/ML CPJ (NOT FOR IM USE) IV PRN (10:30)
[2022-05-27] MEDS: INSULIN GLARGINE 100 UNITS/ML SUBCUT SCH ×2 (10:50→22:18)
[2022-05-27] MEDS: INSULIN LISPRO 100 UNITS/ML SUBCUT SCH ×4 (10:50→22:17)
[2022-05-27 20:00] VITALS: BP 119/68
[2022-05-28] VITALS: BP 118/75
[2022-05-28] MEDS: IPRATROPIUM BROMIDE (0.02%) 0.5MG/2.5ML NEB HHN SCH ×7 (00:30→21:00)
[2022-05-28 04:00] VITALS: BP 114/73
[2022-05-28] MEDS: DEXT 5%/0.9% NACL KCL 20MEQ/L 1,000 ML IV SCH ×3 (04:20→21:22)
[2022-05-28] MEDS: MORPHINE SULFATE 2 MG/ML CPJ (NOT FOR IM USE) IV PRN ×2 (05:47→12:51)
[2022-05-28 07:04] LABS: HEMATOCRIT. 33.8 % (42.0-52.0); MEAN CORPUSCULAR HEMOGLOBIN 30.8 pg (28.0-32.0); MEAN CORPUSCULAR VOLUME 95.1 fL (80.0-94.0); MEAN PLATELET VOLUME 7.6 fl (7.4-10.4); PLATELET 486 x1000/uL (130-400); RED BLOOD CELL COUNT 3.56 mill/uL (4.7-6.1); RED CELL DISTRIBUTION WIDTH 18.1 % (11.6-14.6)
[2022-05-28 07:11] LABS: PLATELET ESTIMATE INCREASED
[2022-05-28] MEDS: BLOOD SUGAR DIAGNOSTIC STRIP TEST SCH ×2 (07:23→21:20)
[2022-05-28 08:00] VITALS: BP 122/89
[2022-05-28 08:52] LABS: CHLORIDE 118 mEq/L (98-107)
[2022-05-28] MEDS: ENOXAPARIN 40MG/0.4ML SYR SUBCUT SCH (10:22)
[2022-05-28] MEDS: PANTOPRAZOLE SODIUM 40 MG/VIAL IV SCH ×2 (10:23→21:22)
[2022-05-28] MEDS: INSULIN GLARGINE 100 UNITS/ML SUBCUT SCH ×2 (10:33→21:21)
[2022-05-28] MEDS: INSULIN LISPRO 100 UNITS/ML SUBCUT SCH ×2 (10:38→21:00)
[2022-05-28 12:00] VITALS: BP 118/98
[2022-05-28] MEDS ORDERED: DIATR MEGLU/DIATRIZOATE SOLN 120ML ONE (13:22)
[2022-05-28 14:11] LABS: PLATELET ESTIMATE INCREASED
[2022-05-28 16:00] VITALS: BP 132/88
[2022-05-28 20:00] VITALS: BP 129/71
[2022-05-29] VITALS: BP 119/83
[2022-05-29] MEDS: IPRATROPIUM BROMIDE (0.02%) 0.5MG/2.5ML NEB HHN SCH ×5 (00:07→17:00)
[2022-05-29] MEDS ORDERED: MORPHINE SULFATE 2 MG/ML CPJ (NOT FOR IM USE) IV NR (00:45)
[2022-05-29 04:00] VITALS: BP 125/71
[2022-05-29] MEDS: DEXT 5%/0.9% NACL KCL 20MEQ/L 1,000 ML IV SCH (04:29)
[2022-05-29 06:17] LABS: HEMOGLOBIN. 10.3 g/dL (14.0-18.0); MEAN CORPUSCULAR VOLUME 95.8 fL (80.0-94.0); MEAN PLATELET VOLUME 7.7 fl (7.4-10.4); PLATELET 496 x1000/uL (130-400); RED BLOOD CELL COUNT 3.44 mill/uL (4.7-6.1); RED CELL DISTRIBUTION WIDTH 17.9 % (11.6-14.6)
[2022-05-29 06:24] LABS: CHLORIDE 121 mEq/L (98-107)
[2022-05-29] MEDS: ONDANSETRON HCL 4MG/2ML INJ IV PRN ×2 (06:51→20:47)
[2022-05-29] MEDS: BLOOD SUGAR DIAGNOSTIC STRIP TEST SCH ×4 (06:56→20:56)
[2022-05-29] MEDS: INSULIN LISPRO 100 UNITS/ML SUBCUT SCH ×4 (07:50→20:55)
[2022-05-29 08:00] VITALS: BP 111/79
[2022-05-29] MEDS: DEXTROSE 5% WATER 1,000 ML IV SCH ×2 (08:15→22:22)
[2022-05-29] MEDS: ENOXAPARIN 40MG/0.4ML SYR SUBCUT SCH (09:38)
[2022-05-29] MEDS: PANTOPRAZOLE SODIUM 40 MG/VIAL IV SCH ×2 (09:38→20:47)
[2022-05-29] MEDS: INSULIN GLARGINE 100 UNITS/ML SUBCUT SCH ×2 (09:39→22:17)
[2022-05-29 12:00] VITALS: BP 126/75
[2022-05-29] MEDS: KCL 20MEQ/100ML PREMIX 100 ML IV SCH ×2 (13:03→16:47)
[2022-05-29 16:00] VITALS: BP 135/79
[2022-05-29] MEDS: ACETAMINOPHEN 325MG TABLET PO PRN (19:35)
[2022-05-29 20:00] VITALS: BP 128/75
[2022-05-29 22:04] LABS: PLATELET ESTIMATE INCREASED
[2022-05-30] VITALS: BP 117/69
[2022-05-30 04:00] VITALS: BP 121/68
[2022-05-30] MEDS: ONDANSETRON HCL 4MG/2ML INJ IV PRN ×3 (04:09→20:04)
[2022-05-30 06:37] LABS: HEMATOCRIT. 32.6 % (42.0-52.0); HEMOGLOBIN. 10.6 g/dL (14.0-18.0); MEAN CORPUSCULAR HEMOGLOBIN 30.9 pg (28.0-32.0); MEAN CORPUSCULAR VOLUME 94.9 fL (80.0-94.0); MEAN PLATELET VOLUME 7.5 fl (7.4-10.4); PLATELET 509 x1000/uL (130-400); RED BLOOD CELL COUNT 3.44 mill/uL (4.7-6.1); RED CELL DISTRIBUTION WIDTH 18.6 % (11.6-14.6)
[2022-05-30 06:52] LABS: CHLORIDE 117 mEq/L (98-107)
[2022-05-30] MEDS ORDERED: DIATR MEGLU/DIATRIZOATE SOLN 30ML PO SCH (07:15)
[2022-05-30] MEDS: BLOOD SUGAR DIAGNOSTIC STRIP TEST SCH ×3 (07:20→17:20)
[2022-05-30] MEDS: INSULIN GLARGINE 100 UNITS/ML SUBCUT SCH (07:30)
[2022-05-30] MEDS: INSULIN LISPRO 100 UNITS/ML SUBCUT SCH ×3 (07:50→17:50)
[2022-05-30] MEDS: POTASSIUM CHLORIDE 20MEQ TABLET SR PO NR ×2 (09:45→18:36)
[2022-05-30] MEDS: PANTOPRAZOLE SODIUM 40 MG/VIAL IV SCH ×2 (11:19→22:00)
[2022-05-30 14:18] LABS: PLATELET ESTIMATE INCREASED
[2022-05-30] MEDS: ENOXAPARIN 40MG/0.4ML SYR SUBCUT SCH (14:33)
[2022-05-30] MEDS: DEXTROSE 5% WATER 1,000 ML IV SCH (15:23)
[2022-05-30 20:00] VITALS: BP 123/69
[2022-05-30] MEDS: ACETAMINOPHEN 325MG TABLET PO PRN (20:41)
[2022-05-31] VITALS: BP 116/72
[2022-05-31] MEDS: DEXTROSE 5% WATER 1,000 ML IV SCH ×2 (00:15→21:56)
[2022-05-31] MEDS: ONDANSETRON HCL 4MG/2ML INJ IV PRN (02:27)
[2022-05-31 04:00] VITALS: BP 115/62
[2022-05-31] MEDS: PANTOPRAZOLE SODIUM 40 MG/VIAL IV SCH ×2 (10:25→21:55)
[2022-05-31] MEDS: ENOXAPARIN 40MG/0.4ML SYR SUBCUT SCH (10:25)
[2022-05-31 11:25] LABS: HEMATOCRIT. 33.8 % (42.0-52.0); HEMOGLOBIN. 10.6 g/dL (14.0-18.0); MEAN CORPUSCULAR HEMOGLOBIN 29.6 pg (28.0-32.0); MEAN CORPUSCULAR VOLUME 94.7 fL (80.0-94.0); MEAN PLATELET VOLUME 7.3 fl (7.4-10.4); PLATELET 502 x1000/uL (130-400); RED BLOOD CELL COUNT 3.57 mill/uL (4.7-6.1); RED CELL DISTRIBUTION WIDTH 18.4 % (11.6-14.6)
[2022-05-31] MEDS ORDERED: METOCLOPRAMIDE HCL 10MG/2ML VIAL IV SCH (12:00)
[2022-05-31 13:41] LABS: PLATELET ESTIMATE INCREASED
[2022-05-31] MEDS ORDERED: METO5TAB86 MT (15:07)
[2022-05-31 16:00] VITALS: BP 115/72
[2022-05-31] MEDS: BLOOD SUGAR DIAGNOSTIC STRIP TEST SCH ×2 (17:20→21:54)
[2022-05-31] MEDS: INSULIN LISPRO 100 UNITS/ML SUBCUT SCH ×2 (17:50→21:00)
[2022-05-31] MEDS: METOCLOPRAMIDE HCL 10MG/2ML VIAL IV SCH (18:12)
[2022-05-31 20:00] VITALS: BP 127/85
[2022-05-31] MEDS: INSULIN GLARGINE 100 UNITS/ML SUBCUT SCH (21:54)
[2022-06-01] VITALS (7 sets, daily range): BP systolic 107–129; BP diastolic 69–80
[2022-06-01] MEDS: METOCLOPRAMIDE HCL 10MG/2ML VIAL IV SCH ×5 (00:31→23:40)
[2022-06-01] MEDS: ONDANSETRON HCL 4MG/2ML INJ IV PRN (00:37)
[2022-06-01] MEDS: PROCHLORPERAZINE 10MG/2ML VIAL IV PRN ×2 (05:49→13:39)
[2022-06-01] MEDS: BLOOD SUGAR DIAGNOSTIC STRIP TEST SCH ×4 (06:07→20:36)
[2022-06-01] MEDS: INSULIN LISPRO 100 UNITS/ML SUBCUT SCH ×4 (07:50→20:36)
[2022-06-01] MEDS: INSULIN GLARGINE 100 UNITS/ML SUBCUT SCH ×2 (10:00→20:36)
[2022-06-01] MEDS: PANTOPRAZOLE SODIUM 40 MG/VIAL IV SCH ×2 (10:42→20:35)
[2022-06-01] MEDS: ENOXAPARIN 40MG/0.4ML SYR SUBCUT SCH (10:42)
[2022-06-01] MEDS ORDERED: ONDA4TAB50 MT (11:05)
[2022-06-01 12:20] LABS: CHLORIDE 103 mEq/L (98-107)
[2022-06-01 12:41] LABS: HEMATOCRIT. 32.9 % (42.0-52.0); HEMOGLOBIN. 10.6 g/dL (14.0-18.0); MEAN CORPUSCULAR HEMOGLOBIN 29.9 pg (28.0-32.0); MEAN CORPUSCULAR VOLUME 92.7 fL (80.0-94.0); MEAN PLATELET VOLUME 7.6 fl (7.4-10.4); PLATELET 494 x1000/uL (130-400); RED BLOOD CELL COUNT 3.54 mill/uL (4.7-6.1)
[2022-06-01] MEDS ORDERED: POTASSIUM CHLORIDE 20MEQ TABLET SR PO ONE ×2 (15:30→18:30)
[2022-06-01] MEDS ORDERED: POTASSIUM CHLORIDE INJ 40 MEQ in DEXT 5% WATER 250 ML IV ONE (15:30)
[2022-06-01] MEDS: SODIUM CHL 0.9% + KCL 20MEQ/L 1,000 ML IV SCH (16:05)
[2022-06-01] MEDS: KCL 20MEQ/100ML PREMIX 100 ML IV SCH ×2 (16:05→17:44)
[2022-06-01] MEDS: IPRATROPIUM BROMIDE (0.02%) 0.5MG/2.5ML NEB HHN SCH (21:00)
[2022-06-02 04:00] VITALS: BP 111/67
[2022-06-02] MEDS: IPRATROPIUM BROMIDE (0.02%) 0.5MG/2.5ML NEB HHN SCH ×2 (04:00)
[2022-06-02] MEDS: SODIUM CHL 0.9% + KCL 20MEQ/L 1,000 ML IV SCH ×2 (04:13→17:40)
[2022-06-02] MEDS: METOCLOPRAMIDE HCL 10MG/2ML VIAL IV SCH ×4 (05:44→23:42)
[2022-06-02] MEDS: BLOOD SUGAR DIAGNOSTIC STRIP TEST SCH ×4 (06:15→21:18)
[2022-06-02 06:16] LABS: HEMOGLOBIN. 10.6 g/dL (14.0-18.0); MEAN CORPUSCULAR HEMOGLOBIN 30.5 pg (28.0-32.0); MEAN CORPUSCULAR VOLUME 92.2 fL (80.0-94.0); MEAN PLATELET VOLUME 7.7 fl (7.4-10.4); PLATELET 453 x1000/uL (130-400); RED BLOOD CELL COUNT 3.47 mill/uL (4.7-6.1); RED CELL DISTRIBUTION WIDTH 18.1 % (11.6-14.6)
[2022-06-02 06:25] LABS: CHLORIDE 106 mEq/L (98-107)
[2022-06-02] MEDS: INSULIN LISPRO 100 UNITS/ML SUBCUT SCH ×4 (07:50→21:00)
[2022-06-02 08:00] VITALS: BP 113/74
[2022-06-02] MEDS: PANTOPRAZOLE SODIUM 40 MG/VIAL IV SCH ×2 (08:53→21:19)
[2022-06-02] MEDS: ENOXAPARIN 40MG/0.4ML SYR SUBCUT SCH (08:53)
[2022-06-02 10:00] LABS: PLATELET ESTIMATE SLIGHTLY INCREASED
[2022-06-02] MEDS: INSULIN GLARGINE 100 UNITS/ML SUBCUT SCH ×2 (10:00→21:36)
[2022-06-02 12:00] VITALS: BP 122/72
[2022-06-02] MEDS: KCL 20MEQ/100ML PREMIX 100 ML IV SCH ×2 (13:16→16:16)
[2022-06-02 14:55] LABS: ATYPICAL LYMPHOCYTES 1
[2022-06-02 14:56] LABS: PLATELET ESTIMATE SLIGHTLY INCREASED
[2022-06-02 16:00] VITALS: BP 126/76
[2022-06-02 20:00] VITALS: BP 117/65
[2022-06-03] VITALS: BP 120/74
[2022-06-03 03:46] VITALS: BP 116/76
[2022-06-03 05:43] LABS: HEMATOCRIT. 31.4 % (42.0-52.0); HEMOGLOBIN. 10.3 g/dL (14.0-18.0); MEAN CORPUSCULAR HEMOGLOBIN 30.2 pg (28.0-32.0); MEAN CORPUSCULAR VOLUME 92.4 fL (80.0-94.0); MEAN PLATELET VOLUME 7.8 fl (7.4-10.4); PLATELET 446 x1000/uL (130-400); RED BLOOD CELL COUNT 3.41 mill/uL (4.7-6.1); RED CELL DISTRIBUTION WIDTH 18.1 % (11.6-14.6)
[2022-06-03 05:49] LABS: CHLORIDE 111 mEq/L (98-107)
[2022-06-03] MEDS: BLOOD SUGAR DIAGNOSTIC STRIP TEST SCH ×4 (05:50→21:51)
[2022-06-03] MEDS: METOCLOPRAMIDE HCL 10MG/2ML VIAL IV SCH ×4 (05:50→23:54)
[2022-06-03] MEDS: SODIUM CHL 0.9% + KCL 20MEQ/L 1,000 ML IV SCH ×2 (06:32→21:51)
[2022-06-03] MEDS: INSULIN LISPRO 100 UNITS/ML SUBCUT SCH ×4 (07:50→21:00)
[2022-06-03 08:07] VITALS: BP 118/88
[2022-06-03] MEDS: PANTOPRAZOLE SODIUM 40 MG/VIAL IV SCH ×2 (08:51→21:51)
[2022-06-03] MEDS: ENOXAPARIN 40MG/0.4ML SYR SUBCUT SCH (08:52)
[2022-06-03] MEDS: PROCHLORPERAZINE 10MG/2ML VIAL IV PRN (08:52)
[2022-06-03] MEDS: INSULIN GLARGINE 100 UNITS/ML SUBCUT SCH ×2 (10:00→22:11)
[2022-06-03] MEDS ORDERED: POTASSIUM CHLORIDE 20MEQ TABLET SR PO NR (11:00)
[2022-06-03 12:00] VITALS: BP 121/74
[2022-06-03] MEDS: ONDANSETRON HCL 4MG/2ML INJ IV SCH ×3 (13:39→23:54)
[2022-06-03] MEDS: PROCHLORPERAZINE 10MG/2ML VIAL IV SCH ×2 (15:07→21:51)
[2022-06-03 16:30] VITALS: BP 116/70
[2022-06-03 20:00] VITALS: BP 108/66
[2022-06-03 20:25] LABS: PLATELET ESTIMATE INCREASED
[2022-06-04] VITALS: BP 115/62
[2022-06-04] MEDS: PROCHLORPERAZINE 10MG/2ML VIAL IV SCH ×4 (03:29→22:16)
[2022-06-04 04:00] VITALS: BP 125/72
[2022-06-04] MEDS: ONDANSETRON HCL 4MG/2ML INJ IV SCH ×3 (06:07→18:58)
[2022-06-04] MEDS: METOCLOPRAMIDE HCL 10MG/2ML VIAL IV SCH ×3 (06:07→18:57)
[2022-06-04 06:56] LABS: CHLORIDE 111 mEq/L (98-107)
[2022-06-04 07:08] LABS: HEMOGLOBIN. 10.4 g/dL (14.0-18.0); MEAN CORPUSCULAR HEMOGLOBIN 30.2 pg (28.0-32.0); MEAN PLATELET VOLUME 7.6 fl (7.4-10.4); PLATELET 414 x1000/uL (130-400); RED BLOOD CELL COUNT 3.44 mill/uL (4.7-6.1); RED CELL DISTRIBUTION WIDTH 18.3 % (11.6-14.6)
[2022-06-04] MEDS: BLOOD SUGAR DIAGNOSTIC STRIP TEST SCH ×4 (07:20→21:00)
[2022-06-04] MEDS: INSULIN LISPRO 100 UNITS/ML SUBCUT SCH ×4 (07:50→21:00)
[2022-06-04 08:00] VITALS: BP 119/75
[2022-06-04] MEDS: PANTOPRAZOLE SODIUM 40 MG/VIAL IV SCH ×2 (09:29→22:16)
[2022-06-04] MEDS: ENOXAPARIN 40MG/0.4ML SYR SUBCUT SCH (09:31)
[2022-06-04] MEDS: INSULIN GLARGINE 100 UNITS/ML SUBCUT SCH ×2 (09:34→22:00)
[2022-06-04] MEDS ORDERED: POTASSIUM CHLORIDE 20MEQ TABLET SR PO NR (09:45)
[2022-06-04] MEDS: SODIUM CHL 0.9% + KCL 20MEQ/L 1,000 ML IV SCH ×2 (10:10→16:21)
[2022-06-04 12:00] VITALS: BP 121/78
[2022-06-04 16:00] VITALS: BP 123/75
[2022-06-04 20:00] VITALS: BP 116/78
[2022-06-04 22:46] LABS: PLATELET ESTIMATE INCREASED
[2022-06-05] VITALS: BP 113/69
[2022-06-05] MEDS: ONDANSETRON HCL 4MG/2ML INJ IV SCH ×3 (01:02→18:36)
[2022-06-05] MEDS: METOCLOPRAMIDE HCL 10MG/2ML VIAL IV SCH ×4 (01:02→18:29)
[2022-06-05] MEDS: PROCHLORPERAZINE 10MG/2ML VIAL IV SCH ×3 (03:58→21:00)
[2022-06-05 04:00] VITALS: BP 110/73
[2022-06-05] MEDS: ACETAMINOPHEN 325MG TABLET PO PRN ×2 (04:12→13:26)
[2022-06-05 06:52] LABS: HEMATOCRIT. 30.5 % (42.0-52.0); HEMOGLOBIN. 10.1 g/dL (14.0-18.0); MEAN CORPUSCULAR HEMOGLOBIN 30.6 pg (28.0-32.0); MEAN CORPUSCULAR VOLUME 92.4 fL (80.0-94.0); MEAN PLATELET VOLUME 7.8 fl (7.4-10.4); PLATELET 405 x1000/uL (130-400); RED CELL DISTRIBUTION WIDTH 17.9 % (11.6-14.6)
[2022-06-05 07:19] LABS: CHLORIDE 107 mEq/L (98-107)
[2022-06-05] MEDS: BLOOD SUGAR DIAGNOSTIC STRIP TEST SCH ×4 (07:30→21:11)
[2022-06-05] MEDS: INSULIN LISPRO 100 UNITS/ML SUBCUT SCH ×4 (07:30→21:00)
[2022-06-05 08:30] VITALS: BP 129/77
[2022-06-05] MEDS: DEXT 5%/0.45% NACL 1000ML 1,000 ML IV SCH ×2 (08:39→22:20)
[2022-06-05] MEDS: ENOXAPARIN 40MG/0.4ML SYR SUBCUT SCH (08:40)
[2022-06-05] MEDS: PANTOPRAZOLE SODIUM 40 MG/VIAL IV SCH ×2 (08:41→21:11)
[2022-06-05] MEDS: IPRATROPIUM BROMIDE (0.02%) 0.5MG/2.5ML NEB HHN SCH ×4 (09:00→20:56)
[2022-06-05] MEDS ORDERED: POTASSIUM CHLORIDE 20MEQ TABLET SR PO SCH (09:00)
[2022-06-05] MEDS: INSULIN GLARGINE 100 UNITS/ML SUBCUT SCH ×2 (09:44→21:21)
[2022-06-05 11:21] LABS: PLATELET ESTIMATE SLIGHTLY INCREASED
[2022-06-05 12:03] VITALS: BP 127/77
[2022-06-05 16:08] LABS: HEMATOCRIT. 30.1 % (42.0-52.0); HEMOGLOBIN. 9.8 g/dL (14.0-18.0); MEAN CORPUSCULAR HEMOGLOBIN 30.1 pg (28.0-32.0); MEAN CORPUSCULAR VOLUME 92.8 fL (80.0-94.0); MEAN PLATELET VOLUME 7.6 fl (7.4-10.4); PLATELET 379 x1000/uL (130-400); RED BLOOD CELL COUNT 3.25 mill/uL (4.7-6.1); RED CELL DISTRIBUTION WIDTH 18.6 % (11.6-14.6)
[2022-06-05 16:11] VITALS: BP 124/73
[2022-06-05 16:24] LABS: CHLORIDE 104 mEq/L (98-107)
[2022-06-05] MEDS ORDERED: POTASSIUM CHLORIDE INJ 40 MEQ in DEXT 5% WATER 250 ML IV ONE (17:30)
[2022-06-05] MEDS ORDERED: BISACODYL 10MG SUPP PR NR ×2 (18:00→20:00)
[2022-06-05] MEDS: KCL 20MEQ/100ML X 2 FOR TOTAL KCL 40MEQ/200ML IV SCH ×2 (18:30→21:12)
[2022-06-05 20:00] VITALS: BP 121/79
[2022-06-05 22:18] LABS: PLATELET ESTIMATE NORMAL
[2022-06-06] VITALS: BP 117/79
[2022-06-06] MEDS: IPRATROPIUM BROMIDE (0.02%) 0.5MG/2.5ML NEB HHN SCH ×5 (00:45→15:39)
[2022-06-06] MEDS: METOCLOPRAMIDE HCL 10MG/2ML VIAL IV SCH ×4 (00:49→17:13)
[2022-06-06] MEDS: PROCHLORPERAZINE 10MG/2ML VIAL IV SCH ×4 (02:22→21:00)
[2022-06-06 04:00] VITALS: BP 110/73
[2022-06-06] MEDS: ONDANSETRON HCL 4MG/2ML INJ IV SCH ×4 (06:00→17:13)
[2022-06-06] MEDS: BLOOD SUGAR DIAGNOSTIC STRIP TEST SCH ×4 (06:21→21:00)
[2022-06-06] MEDS: INSULIN LISPRO 100 UNITS/ML SUBCUT SCH ×4 (07:50→22:26)
[2022-06-06 08:08] VITALS: BP 122/74
[2022-06-06] MEDS: PANTOPRAZOLE SODIUM 40 MG/VIAL IV SCH ×2 (09:28→22:05)
[2022-06-06] MEDS: ENOXAPARIN 40MG/0.4ML SYR SUBCUT SCH (09:29)
[2022-06-06] MEDS ORDERED: LORAZEPAM 1MG TABLET PO PRN (09:30)
[2022-06-06] MEDS: ACETAMINOPHEN 325MG TABLET PO PRN (09:32)
[2022-06-06] MEDS: INSULIN GLARGINE 100 UNITS/ML SUBCUT SCH ×2 (09:46→22:27)
[2022-06-06] MEDS ORDERED: MAGNESIUM 2 G PREMIX 50 ML IV NR (11:00)
[2022-06-06] MEDS ORDERED: KCL 20MEQ/100ML PREMIX 100 ML IV SCH (11:00)
[2022-06-06] MEDS: DEXT 5%/0.45% NACL 1000ML 1,000 ML IV SCH (11:12)
[2022-06-06 12:15] VITALS: BP 115/73
[2022-06-06] MEDS: KCL 20MEQ/100ML PREMIX 100 ML IV SCH ×2 (13:37→15:00)
[2022-06-06] MEDS ORDERED: NALOXONE HCL 0.4MG/ML VIAL IV PRN (14:00)
[2022-06-06 16:09] VITALS: BP 117/89
[2022-06-06] MEDS: HYDROCODONE/ACETAMINOPHEN 5/325MG TABLET PO PRN (18:14)
[2022-06-06 20:00] VITALS: BP 114/86
[2022-06-06] MEDS ORDERED: POTASSIUM CHLORIDE INJ 40 MEQ in DEXT 5% WATER 250 ML IV ONE (20:30)
[2022-06-06] MEDS: KCL 20MEQ/100ML X 2 FOR TOTAL KCL 40MEQ/200ML IV SCH (22:05)
[2022-06-07] MEDS: ONDANSETRON HCL 4MG/2ML INJ IV SCH ×4 (00:01→18:50)
[2022-06-07] MEDS: METOCLOPRAMIDE HCL 10MG/2ML VIAL IV SCH ×4 (00:01→18:50)
[2022-06-07] MEDS: KCL 20MEQ/100ML X 2 FOR TOTAL KCL 40MEQ/200ML IV SCH (00:10)
[2022-06-07] MEDS: HYDROCODONE/ACETAMINOPHEN 5/325MG TABLET PO PRN ×3 (00:23→15:12)
[2022-06-07] MEDS: DEXT 5%/0.45% NACL 1000ML 1,000 ML IV SCH ×2 (01:00→12:44)
[2022-06-07] MEDS: PROCHLORPERAZINE 10MG/2ML VIAL IV SCH ×4 (03:56→21:13)
[2022-06-07 04:00] VITALS: BP 105/66
[2022-06-07 06:56] LABS: HEMATOCRIT. 31.5 % (42.0-52.0); HEMOGLOBIN. 10.4 g/dL (14.0-18.0); MEAN CORPUSCULAR HEMOGLOBIN 30.4 pg (28.0-32.0); MEAN PLATELET VOLUME 8.2 fl (7.4-10.4); PLATELET 372 x1000/uL (130-400); RED BLOOD CELL COUNT 3.43 mill/uL (4.7-6.1); RED CELL DISTRIBUTION WIDTH 18.2 % (11.6-14.6)
[2022-06-07] MEDS: BLOOD SUGAR DIAGNOSTIC STRIP TEST SCH ×4 (07:20→21:13)
[2022-06-07 07:27] LABS: CHLORIDE 102 mEq/L (98-107)
[2022-06-07 08:00] VITALS: BP 120/88
[2022-06-07] MEDS: PANTOPRAZOLE SODIUM 40 MG/VIAL IV SCH ×2 (08:23→21:13)
[2022-06-07] MEDS: ENOXAPARIN 40MG/0.4ML SYR SUBCUT SCH (08:24)
[2022-06-07] MEDS: INSULIN LISPRO 100 UNITS/ML SUBCUT SCH ×4 (08:27→21:00)
[2022-06-07] MEDS: IPRATROPIUM BROMIDE (0.02%) 0.5MG/2.5ML NEB HHN SCH ×4 (09:00→20:25)
[2022-06-07] MEDS: INSULIN GLARGINE 100 UNITS/ML SUBCUT SCH ×2 (10:00→21:14)
[2022-06-07 11:58] VITALS: BP 124/82
[2022-06-07] MEDS ORDERED: POTASSIUM CHLORIDE INJ 40 MEQ in DEXT 5% WATER 250 ML IV SCH (12:00)
[2022-06-07 14:15] LABS: NUCLEATED RED BLOOD CELLS 1 /100 WBC; PLATELET ESTIMATE NORMAL
[2022-06-07 15:52] VITALS: BP 128/88
[2022-06-07] MEDS ORDERED: IOHEXOL-300 100 ML BOTTLE ONE (17:19)
[2022-06-07 20:00] VITALS: BP 108/69
[2022-06-07] MEDS: TRAZODONE HCL 50MG TABLET PO SCH (21:13)
[2022-06-08] VITALS: BP 137/86
[2022-06-08] MEDS: METOCLOPRAMIDE HCL 10MG/2ML VIAL IV SCH ×4 (00:01→18:19)
[2022-06-08] MEDS: ONDANSETRON HCL 4MG/2ML INJ IV SCH ×4 (00:01→18:19)
[2022-06-08] MEDS: HYDROCODONE/ACETAMINOPHEN 5/325MG TABLET PO PRN (00:09)
[2022-06-08] MEDS: IPRATROPIUM BROMIDE (0.02%) 0.5MG/2.5ML NEB HHN SCH ×5 (00:36→17:00)
[2022-06-08] MEDS ORDERED: MORPHINE SULFATE 2 MG/ML CPJ (NOT FOR IM USE) IV PRN ×2 (00:45→23:45)
[2022-06-08] MEDS: PROCHLORPERAZINE 10MG/2ML VIAL IV SCH ×4 (03:38→21:36)
[2022-06-08] MEDS: DEXT 5%/0.45% NACL 1000ML 1,000 ML IV SCH (03:38)
[2022-06-08 04:00] VITALS: BP 115/86
[2022-06-08] MEDS: BLOOD SUGAR DIAGNOSTIC STRIP TEST SCH ×4 (06:19→21:27)
[2022-06-08 06:51] LABS: HEMATOCRIT. 31.2 % (42.0-52.0); HEMOGLOBIN. 10.3 g/dL (14.0-18.0); MEAN CORPUSCULAR HEMOGLOBIN 30.1 pg (28.0-32.0); MEAN CORPUSCULAR VOLUME 91.5 fL (80.0-94.0); PLATELET 358 x1000/uL (130-400); RED BLOOD CELL COUNT 3.41 mill/uL (4.7-6.1); RED CELL DISTRIBUTION WIDTH 18.6 % (11.6-14.6)
[2022-06-08 07:08] LABS: CHLORIDE 102 mEq/L (98-107)
[2022-06-08 07:44] VITALS: BP 112/84
[2022-06-08] MEDS ORDERED: SODIUM CHL 0.9% + KCL 20MEQ/L 1,000 ML IV SCH (08:00)
[2022-06-08] MEDS: PANTOPRAZOLE SODIUM 40 MG/VIAL IV SCH ×2 (08:45→21:36)
[2022-06-08] MEDS: ENOXAPARIN 40MG/0.4ML SYR SUBCUT SCH (08:45)
[2022-06-08] MEDS: INSULIN LISPRO 100 UNITS/ML SUBCUT SCH ×4 (08:46→21:00)
[2022-06-08 08:59] LABS: GAMMA GLUTAMYL TRANSPEPTIDASE 34 IU/L (11-50)
[2022-06-08] MEDS: INSULIN GLARGINE 100 UNITS/ML SUBCUT SCH ×2 (10:00→21:27)
[2022-06-08] MEDS: KCL 20MEQ/100ML PREMIX 100 ML IV SCH ×2 (10:30→11:36)
[2022-06-08 12:00] VITALS: BP 118/88
[2022-06-08] MEDS: SUCRALFATE 1 G/10 ML UDC PO SCH ×3 (12:20→21:00)
[2022-06-08 12:43] LABS: PLATELET ESTIMATE NORMAL
[2022-06-08] MEDS ORDERED: PROPOFOL 200MG/20ML VIAL IV ONE ×2 (12:53→13:54)
[2022-06-08] MEDS ORDERED: LIDOCAINE HCL 1% 10 MG/ML 10ML VIAL ONE (12:53)
[2022-06-08] MEDS ORDERED: FENTANYL CITRATE/PF 50MCG/ML 2ML VIAL ONE (12:53)
[2022-06-08] MEDS ORDERED: SUCCINYLCHOLINE CHLORIDE 200MG/10ML IV ONE (12:54)
[2022-06-08] MEDS ORDERED: MIDAZOLAM HCL 2 MG/2 ML VIAL ONE ×2 (13:05→13:22)
[2022-06-08] MEDS ORDERED: DIATR MEGLU/DIATRIZOATE SOLN 30ML PO SCH (14:45)
[2022-06-08 16:00] VITALS: BP 115/84
[2022-06-08 20:00] VITALS: BP 122/82
[2022-06-08] MEDS: TRAZODONE HCL 50MG TABLET PO SCH (21:00)
[2022-06-08] MEDS: POTASSIUM CHLORIDE INJ 30 MEQ in DEXT 5%/0.9% NACL 1,000 ML IV SCH (21:37)
[2022-06-08 22:07] LABS: INR 1.1; PROTHROMBIN TIME 12.1 sec (9.6-11.0)
[2022-06-09] VITALS: BP 115/69
[2022-06-09] MEDS: ONDANSETRON HCL 4MG/2ML INJ IV SCH ×5 (01:09→17:15)
[2022-06-09] MEDS: METOCLOPRAMIDE HCL 10MG/2ML VIAL IV SCH ×5 (01:09→17:15)
[2022-06-09] MEDS: PROCHLORPERAZINE 10MG/2ML VIAL IV SCH ×4 (03:46→21:03)
[2022-06-09 04:00] VITALS: BP 119/83
[2022-06-09] MEDS: POTASSIUM CHLORIDE INJ 30 MEQ in DEXT 5%/0.9% NACL 1,000 ML IV SCH ×2 (07:09→15:06)
[2022-06-09] MEDS: BLOOD SUGAR DIAGNOSTIC STRIP TEST SCH ×4 (07:20→21:00)
[2022-06-09] MEDS: SUCRALFATE 1 G/10 ML UDC PO SCH ×4 (07:20→21:03)
[2022-06-09] MEDS: INSULIN LISPRO 100 UNITS/ML SUBCUT SCH ×4 (07:50→22:21)
[2022-06-09 08:00] VITALS: BP 119/74
[2022-06-09] MEDS: IPRATROPIUM BROMIDE (0.02%) 0.5MG/2.5ML NEB HHN SCH ×4 (08:08→21:00)
[2022-06-09] MEDS: ENOXAPARIN 40MG/0.4ML SYR SUBCUT SCH (08:52)
[2022-06-09] MEDS: PANTOPRAZOLE SODIUM 40 MG/VIAL IV SCH ×2 (08:52→21:03)
[2022-06-09] MEDS ORDERED: DIATR MEGLU/DIATRIZOATE SOLN 120ML ONE (09:06)
[2022-06-09] MEDS: INSULIN GLARGINE 100 UNITS/ML SUBCUT SCH ×2 (09:07→22:21)
[2022-06-09] MEDS ORDERED: LIDOCAINE HCL 1% 10 MG/ML 10ML VIAL ONE (11:36)
[2022-06-09 16:00] VITALS: BP 135/89
[2022-06-09] MEDS ORDERED: DILTIAZEM HCL 5MG/ML 5ML VIAL IV NR (18:00)
[2022-06-09 18:14] LABS: HEMATOCRIT. 32.5 % (42.0-52.0); HEMOGLOBIN. 10.2 g/dL (14.0-18.0); MEAN CORPUSCULAR HEMOGLOBIN 29.6 pg (28.0-32.0); MEAN PLATELET VOLUME 8.3 fl (7.4-10.4); PLATELET 329 x1000/uL (130-400); RED BLOOD CELL COUNT 3.45 mill/uL (4.7-6.1); RED CELL DISTRIBUTION WIDTH 18.4 % (11.6-14.6)
[2022-06-09 18:32] LABS: CHLORIDE 110 mEq/L (98-107)
[2022-06-09 20:00] VITALS: BP 142/87
[2022-06-09] MEDS ORDERED: MAGNESIUM 4 G PREMIX 100 ML IV NR (20:00)
[2022-06-09 20:03] LABS: PLATELET ESTIMATE NORMAL
[2022-06-09] MEDS: PIPERACILLIN/TAZOBACTAM 3.375 G in DEXTROSE 5% WATER 50 ML IV SCH (21:03)
[2022-06-09] MEDS: TRAZODONE HCL 50MG TABLET PO SCH (21:05)
[2022-06-10] VITALS: BP 132/58
[2022-06-10] MEDS: METOCLOPRAMIDE HCL 10MG/2ML VIAL IV SCH ×5 (00:42→23:43)
[2022-06-10] MEDS: IPRATROPIUM BROMIDE (0.02%) 0.5MG/2.5ML NEB HHN SCH ×6 (00:46→19:47)
[2022-06-10] MEDS: POTASSIUM CHLORIDE INJ 30 MEQ in DEXT 5%/0.9% NACL 1,000 ML IV SCH ×3 (02:12→21:00)
[2022-06-10 04:00] VITALS: BP 136/88
[2022-06-10] MEDS: PROCHLORPERAZINE 10MG/2ML VIAL IV SCH ×4 (04:25→21:39)
[2022-06-10] MEDS: PIPERACILLIN/TAZOBACTAM 3.375 G in DEXTROSE 5% WATER 50 ML IV SCH ×3 (05:45→23:42)
[2022-06-10] MEDS: SUCRALFATE 1 G/10 ML UDC PO SCH ×4 (07:20→21:39)
[2022-06-10] MEDS: BLOOD SUGAR DIAGNOSTIC STRIP TEST SCH ×4 (07:20→23:46)
[2022-06-10 07:35] LABS: HEMATOCRIT. 29.3 % (42.0-52.0); HEMOGLOBIN. 9.4 g/dL (14.0-18.0); MEAN CORPUSCULAR HEMOGLOBIN 29.8 pg (28.0-32.0); MEAN CORPUSCULAR VOLUME 92.9 fL (80.0-94.0); MEAN PLATELET VOLUME 8.1 fl (7.4-10.4); PLATELET 282 x1000/uL (130-400); RED BLOOD CELL COUNT 3.15 mill/uL (4.7-6.1); RED CELL DISTRIBUTION WIDTH 18.8 % (11.6-14.6)
[2022-06-10] MEDS: INSULIN LISPRO 100 UNITS/ML SUBCUT SCH ×4 (07:50→23:46)
[2022-06-10 07:53] LABS: CHLORIDE 111 mEq/L (98-107)
[2022-06-10 08:00] VITALS: BP 138/98
[2022-06-10] MEDS: INSULIN GLARGINE 100 UNITS/ML SUBCUT SCH ×2 (09:14→22:00)
[2022-06-10] MEDS: PANTOPRAZOLE SODIUM 40 MG/VIAL IV SCH ×2 (09:22→21:38)
[2022-06-10] MEDS: ENOXAPARIN 40MG/0.4ML SYR SUBCUT SCH (09:22)
[2022-06-10 12:00] VITALS: BP 130/80
[2022-06-10] MEDS: ONDANSETRON HCL 4MG/2ML INJ IV SCH ×3 (13:10→23:42)
[2022-06-10 13:57] LABS: PLATELET ESTIMATE NORMAL
[2022-06-10] MEDS: KCL 20MEQ/100ML PREMIX 100 ML IV SCH ×2 (14:15→17:58)
[2022-06-10 15:36] VITALS: BP 133/87
[2022-06-10 20:00] VITALS: BP 110/56
[2022-06-10] MEDS: TRAZODONE HCL 50MG TABLET PO SCH (21:39)
[2022-06-10] MEDS: MORPHINE SULFATE 4 MG/ML CPJ (NOT FOR IM USE) IV PRN (22:58)
[2022-06-10] MEDS: TOTAL PARENTERAL NUTRITION 1,600 ML IV SCH (23:00)
[2022-06-11] VITALS: BP 110/72
[2022-06-11] MEDS: IPRATROPIUM BROMIDE (0.02%) 0.5MG/2.5ML NEB HHN SCH ×6 (00:40→21:00)
[2022-06-11] MEDS: PROCHLORPERAZINE 10MG/2ML VIAL IV SCH ×4 (03:06→21:30)
[2022-06-11 04:00] VITALS: BP 137/92
[2022-06-11] MEDS: METOCLOPRAMIDE HCL 10MG/2ML VIAL IV SCH ×3 (05:15→18:04)
[2022-06-11] MEDS: PIPERACILLIN/TAZOBACTAM 3.375 G in DEXTROSE 5% WATER 50 ML IV SCH ×3 (05:15→21:31)
[2022-06-11] MEDS: ONDANSETRON HCL 4MG/2ML INJ IV SCH ×3 (05:15→18:04)
[2022-06-11] MEDS: BLOOD SUGAR DIAGNOSTIC STRIP TEST SCH ×3 (05:15→18:01)
[2022-06-11] MEDS: INSULIN LISPRO 100 UNITS/ML SUBCUT SCH ×3 (06:21→18:01)
[2022-06-11 07:24] LABS: HEMATOCRIT. 27.2 % (42.0-52.0); HEMOGLOBIN. 8.7 g/dL (14.0-18.0); MEAN CORPUSCULAR HEMOGLOBIN 29.8 pg (28.0-32.0); MEAN CORPUSCULAR VOLUME 93.6 fL (80.0-94.0); MEAN PLATELET VOLUME 7.9 fl (7.4-10.4); PLATELET 267 x1000/uL (130-400); RED BLOOD CELL COUNT 2.91 mill/uL (4.7-6.1); RED CELL DISTRIBUTION WIDTH 18.4 % (11.6-14.6)
[2022-06-11 07:36] LABS: CHLORIDE 114 mEq/L (98-107)
[2022-06-11 07:47] LABS: PHOSPHORUS 1.5 mg/dL (2.5-4.9)
[2022-06-11 08:00] VITALS: BP 136/96
[2022-06-11] MEDS: INSULIN GLARGINE 100 UNITS/ML SUBCUT SCH ×2 (10:12→21:53)
[2022-06-11] MEDS: SUCRALFATE 1 G/10 ML UDC PO SCH ×4 (10:22→21:30)
[2022-06-11] MEDS: ENOXAPARIN 40MG/0.4ML SYR SUBCUT SCH (10:22)
[2022-06-11] MEDS: PANTOPRAZOLE SODIUM 40 MG/VIAL IV SCH ×2 (10:22→21:30)
[2022-06-11] MEDS: SODIUM CHL 0.9% + KCL 20MEQ/L 1,000 ML IV SCH ×2 (10:37→18:05)
[2022-06-11 11:17] LABS: PLATELET ESTIMATE NORMAL
[2022-06-11 12:00] VITALS: BP 129/91
[2022-06-11 13:07] LABS: ATYPICAL P-ANCA <1:20 titer (Neg:<1:20); ATYPICAL pANCA <1:20 titer (Neg:<1:20); CYTOPLASMIC C-ANCA <1:20 titer (Neg:<1:20); PERINUCLEAR P-ANCA <1:20 titer (Neg:<1:20); SACCHAROMYCES CEREVISIAE IGM 208.8 Units (0.0-24.9)
[2022-06-11 14:08] LABS: ANTI-MYELOPEROXIDASE AB < 0.2 units (0.0-0.9); ANTI-PROTEINASE 3 ABS < 0.2 units (0.0-0.9)
[2022-06-11] MEDS ORDERED: DIATR MEGLU/DIATRIZOATE SOLN 120ML ONE (14:18)
[2022-06-11] MEDS ORDERED: POTASSIUM PHOS,M-BASIC-D-BASIC 20 MMOL in DEXT 5% WATER 243.3333 ML IV NR (14:30)
[2022-06-11 16:00] VITALS: BP 134/94
[2022-06-11] MEDS: POTASSIUM CHLORIDE INJ 30 MEQ in DEXT 5%/0.9% NACL 1,000 ML IV SCH (17:18)
[2022-06-11 19:11] LABS: OVA & PARASITE EXAM Final report (.)
[2022-06-11 20:00] VITALS: BP 132/94
[2022-06-11] MEDS ORDERED: PHYTONADIONE 10MG/ML AMP SUBCUT SCH (21:00)
[2022-06-11] MEDS: FAT EMULSIONS 500 ML IV SCH (21:30)
[2022-06-11] MEDS: TRAZODONE HCL 50MG TABLET PO SCH (21:30)
[2022-06-11] MEDS: TOTAL PARENTERAL NUTRITION 1,600 ML IV SCH (21:52)
[2022-06-12] VITALS (7 sets, daily range): BP systolic 127–141; BP diastolic 86–102
[2022-06-12] MEDS: BLOOD SUGAR DIAGNOSTIC STRIP TEST SCH ×5 (00:03→23:26)
[2022-06-12] MEDS: METOCLOPRAMIDE HCL 10MG/2ML VIAL IV SCH ×4 (00:17→17:38)
[2022-06-12] MEDS: ONDANSETRON HCL 4MG/2ML INJ IV SCH ×4 (00:17→17:38)
[2022-06-12] MEDS: IPRATROPIUM BROMIDE (0.02%) 0.5MG/2.5ML NEB HHN SCH ×5 (00:18→16:33)
[2022-06-12] MEDS: INSULIN LISPRO 100 UNITS/ML SUBCUT SCH ×4 (00:22→17:39)
[2022-06-12] MEDS: PROCHLORPERAZINE 10MG/2ML VIAL IV SCH ×4 (02:18→21:39)
[2022-06-12] MEDS: SODIUM CHL 0.9% + KCL 20MEQ/L 1,000 ML IV SCH ×2 (06:14→17:38)
[2022-06-12] MEDS: PIPERACILLIN/TAZOBACTAM 3.375 G in DEXTROSE 5% WATER 50 ML IV SCH ×3 (06:14→21:54)
[2022-06-12] MEDS: SUCRALFATE 1 G/10 ML UDC PO SCH ×4 (06:48→21:39)
[2022-06-12 07:06] LABS: BASOPHILS % 0.2 % (0.0-2.0); HEMATOCRIT. 28.1 % (42.0-52.0); HEMOGLOBIN. 9.2 g/dL (14.0-18.0); LYMPHOCYTES % 8.8 % (20.0-50.0); MEAN CORPUSCULAR HEMOGLOBIN 30.4 pg (28.0-32.0); MEAN CORPUSCULAR VOLUME 92.2 fL (80.0-94.0); MONOCYTES % 13.6 % (2.0-8.0); NEUTROPHILS % 76.4 % (40.0-76.0); PLATELET 290 x1000/uL (130-400); RED BLOOD CELL COUNT 3.04 mill/uL (4.7-6.1); RED CELL DISTRIBUTION WIDTH 18.5 % (11.6-14.6)
[2022-06-12 07:30] LABS: CHLORIDE 112 mEq/L (98-107)
[2022-06-12] MEDS: PANTOPRAZOLE SODIUM 40 MG/VIAL IV SCH ×2 (08:18→21:39)
[2022-06-12] MEDS: ENOXAPARIN 40MG/0.4ML SYR SUBCUT SCH (08:18)
[2022-06-12] MEDS: MORPHINE SULFATE 4 MG/ML CPJ (NOT FOR IM USE) IV PRN ×2 (08:27→15:33)
[2022-06-12] MEDS ORDERED: POTASSIUM CHLORIDE INJ 40 MEQ in DEXT 5% WATER 250 ML IV ONE (08:30)
[2022-06-12] MEDS: KCL 20MEQ/100ML X 2 FOR TOTAL KCL 40MEQ/200ML IV SCH ×2 (10:25→17:38)
[2022-06-12] MEDS: INSULIN GLARGINE 100 UNITS/ML SUBCUT SCH ×2 (10:26→21:52)
[2022-06-12] MEDS: POTASSIUM CHLORIDE INJ 30 MEQ in DEXT 5%/0.9% NACL 1,000 ML IV SCH (13:36)
[2022-06-12] MEDS: METHYLPREDNISOLONE SOD SUCC 125 MG/2 ML VIAL IV SCH ×2 (14:49→21:39)
[2022-06-12] MEDS: TRAZODONE HCL 50MG TABLET PO SCH (21:39)
[2022-06-12] MEDS: TOTAL PARENTERAL NUTRITION 1,600 ML IV SCH (21:53)
[2022-06-13] VITALS: BP 132/94
[2022-06-13] MEDS: METOCLOPRAMIDE HCL 10MG/2ML VIAL IV SCH ×4 (00:02→19:16)
[2022-06-13] MEDS: ONDANSETRON HCL 4MG/2ML INJ IV SCH ×4 (00:03→19:16)
[2022-06-13] MEDS: INSULIN LISPRO 100 UNITS/ML SUBCUT SCH ×5 (00:05→19:19)
[2022-06-13] MEDS: PROCHLORPERAZINE 10MG/2ML VIAL IV SCH ×4 (02:01→21:40)
[2022-06-13 04:00] VITALS: BP 141/90
[2022-06-13] MEDS: BLOOD SUGAR DIAGNOSTIC STRIP TEST SCH ×3 (05:07→18:29)
[2022-06-13] MEDS: PIPERACILLIN/TAZOBACTAM 3.375 G in DEXTROSE 5% WATER 50 ML IV SCH ×2 (05:13→15:33)
[2022-06-13] MEDS: METHYLPREDNISOLONE SOD SUCC 125 MG/2 ML VIAL IV SCH ×3 (05:15→21:41)
[2022-06-13] MEDS: SODIUM CHL 0.9% + KCL 20MEQ/L 1,000 ML IV SCH ×2 (05:17→19:18)
[2022-06-13] MEDS: SUCRALFATE 1 G/10 ML UDC PO SCH ×4 (06:57→21:00)
[2022-06-13 07:11] LABS: HEMATOCRIT. 30.8 % (42.0-52.0); HEMOGLOBIN. 9.9 g/dL (14.0-18.0); MEAN CORPUSCULAR HEMOGLOBIN 29.6 pg (28.0-32.0); MEAN CORPUSCULAR VOLUME 92.5 fL (80.0-94.0); MEAN PLATELET VOLUME 8.4 fl (7.4-10.4); PLATELET 342 x1000/uL (130-400); RED BLOOD CELL COUNT 3.33 mill/uL (4.7-6.1); RED CELL DISTRIBUTION WIDTH 18.4 % (11.6-14.6)
[2022-06-13 07:31] LABS: CHLORIDE 107 mEq/L (98-107)
[2022-06-13 08:00] VITALS: BP 138/98
[2022-06-13] MEDS: IPRATROPIUM BROMIDE (0.02%) 0.5MG/2.5ML NEB HHN SCH ×2 (08:12→19:44)
[2022-06-13] MEDS: ENOXAPARIN 40MG/0.4ML SYR SUBCUT SCH (08:44)
[2022-06-13] MEDS: PANTOPRAZOLE SODIUM 40 MG/VIAL IV SCH ×2 (08:44→21:40)
[2022-06-13] MEDS: MORPHINE SULFATE 4 MG/ML CPJ (NOT FOR IM USE) IV PRN ×2 (08:45→20:24)
[2022-06-13] MEDS: INSULIN GLARGINE 100 UNITS/ML SUBCUT SCH ×2 (11:49→22:15)
[2022-06-13 12:00] VITALS: BP 129/67
[2022-06-13] MEDS: POTASSIUM CHLORIDE INJ 40 MEQ in SODIUM CHLORIDE 0.9% 1,000 ML IV SCH (15:33)
[2022-06-13 16:00] VITALS: BP 128/0
[2022-06-13 20:00] VITALS: BP 139/95
[2022-06-13] MEDS ORDERED: TOTAL PARENTERAL NUTRITION 1,600 ML IV SCH (21:00)
[2022-06-13] MEDS: TRAZODONE HCL 50MG TABLET PO SCH (21:00)
[2022-06-13] MEDS: FAT EMULSIONS 500 ML IV SCH (21:41)
[2022-06-13 22:42] LABS: PLATELET ESTIMATE NORMAL
[2022-06-14] VITALS: BP 133/91
[2022-06-14] MEDS: IPRATROPIUM BROMIDE (0.02%) 0.5MG/2.5ML NEB HHN SCH ×4 (00:05→23:38)
[2022-06-14] MEDS: METOCLOPRAMIDE HCL 10MG/2ML VIAL IV SCH ×5 (00:14→23:30)
[2022-06-14] MEDS: ONDANSETRON HCL 4MG/2ML INJ IV SCH ×5 (00:14→23:30)
[2022-06-14] MEDS: INSULIN LISPRO 100 UNITS/ML SUBCUT SCH ×5 (00:16→23:37)
[2022-06-14] MEDS: PIPERACILLIN/TAZOBACTAM 3.375 G in DEXTROSE 5% WATER 50 ML IV SCH ×3 (00:17→13:00)
[2022-06-14] MEDS: PROCHLORPERAZINE 10MG/2ML VIAL IV SCH (03:08)
[2022-06-14 04:00] VITALS: BP 127/90
[2022-06-14] MEDS: SODIUM CHL 0.9% + KCL 20MEQ/L 1,000 ML IV SCH ×2 (06:00→18:54)
[2022-06-14] MEDS: METHYLPREDNISOLONE SOD SUCC 125 MG/2 ML VIAL IV SCH ×3 (06:47→21:11)
[2022-06-14] MEDS: SUCRALFATE 1 G/10 ML UDC PO SCH ×5 (06:58→21:11)
[2022-06-14] MEDS: POTASSIUM CHLORIDE INJ 40 MEQ in SODIUM CHLORIDE 0.9% 1,000 ML IV SCH (06:58)
[2022-06-14 06:59] LABS: HEMATOCRIT. 29.2 % (42.0-52.0); HEMOGLOBIN. 9.7 g/dL (14.0-18.0); MEAN CORPUSCULAR HEMOGLOBIN 30.8 pg (28.0-32.0); MEAN CORPUSCULAR VOLUME 92.7 fL (80.0-94.0); MEAN PLATELET VOLUME 8.2 fl (7.4-10.4); PLATELET 362 x1000/uL (130-400); RED BLOOD CELL COUNT 3.14 mill/uL (4.7-6.1); RED CELL DISTRIBUTION WIDTH 18.4 % (11.6-14.6)
[2022-06-14 07:11] LABS: CHLORIDE 105 mEq/L (98-107)
[2022-06-14 08:00] VITALS: BP 119/87
[2022-06-14] MEDS ORDERED: BLOOD SUGAR DIAGNOSTIC STRIP TEST SCH (09:00)
[2022-06-14] MEDS: PANTOPRAZOLE SODIUM 40 MG/VIAL IV SCH ×2 (09:29→21:11)
[2022-06-14] MEDS: ENOXAPARIN 30MG/0.3ML SYR SUBCUT SCH ×2 (09:31→21:12)
[2022-06-14] MEDS: INSULIN GLARGINE 100 UNITS/ML SUBCUT SCH ×2 (09:51→21:12)
[2022-06-14] MEDS: MORPHINE SULFATE 4 MG/ML CPJ (NOT FOR IM USE) IV PRN (09:51)
[2022-06-14 12:00] VITALS: BP 134/94
[2022-06-14] MEDS: SODIUM CHLORIDE 0.9% 1,000 ML IV SCH (12:47)
[2022-06-14 14:13] LABS: PLATELET ESTIMATE NORMAL
[2022-06-14 16:00] VITALS: BP 134/97
[2022-06-14 20:00] VITALS: BP 130/96
[2022-06-14] MEDS: TRAZODONE HCL 50MG TABLET PO SCH ×2 (21:00→21:11)
[2022-06-14] MEDS ORDERED: TOTAL PARENTERAL NUTRITION 2,000 ML IV SCH (21:00)
[2022-06-15] VITALS: BP 125/72
[2022-06-15 04:00] VITALS: BP 137/80
[2022-06-15] MEDS: SODIUM CHL 0.9% + KCL 20MEQ/L 1,000 ML IV SCH (06:00)
[2022-06-15] MEDS: ONDANSETRON HCL 4MG/2ML INJ IV SCH ×2 (06:23→15:03)
[2022-06-15] MEDS: SODIUM CHLORIDE 0.9% 1,000 ML IV SCH (06:24)
[2022-06-15] MEDS: INSULIN LISPRO 100 UNITS/ML SUBCUT SCH ×3 (06:24→18:34)
[2022-06-15] MEDS: METHYLPREDNISOLONE SOD SUCC 125 MG/2 ML VIAL IV SCH ×2 (06:24→15:04)
[2022-06-15] MEDS: METOCLOPRAMIDE HCL 10MG/2ML VIAL IV SCH ×2 (06:24→15:03)
[2022-06-15] MEDS: SUCRALFATE 1 G/10 ML UDC PO SCH ×2 (06:25→15:03)
[2022-06-15] MEDS: IPRATROPIUM BROMIDE (0.02%) 0.5MG/2.5ML NEB HHN SCH ×3 (07:32→15:35)
[2022-06-15 07:43] VITALS: BP 133/84
[2022-06-15 08:12] LABS: HEMOGLOBIN. 9.1 g/dL (14.0-18.0); MEAN CORPUSCULAR HEMOGLOBIN 30.1 pg (28.0-32.0); MEAN CORPUSCULAR VOLUME 92.5 fL (80.0-94.0); MEAN PLATELET VOLUME 8.3 fl (7.4-10.4); PLATELET 306 x1000/uL (130-400); RED BLOOD CELL COUNT 3.03 mill/uL (4.7-6.1); RED CELL DISTRIBUTION WIDTH 18.3 % (11.6-14.6)
[2022-06-15 09:05] LABS: CHLORIDE 103 mEq/L (98-107)
[2022-06-15] MEDS: PANTOPRAZOLE SODIUM 40 MG/VIAL IV SCH (09:46)
[2022-06-15] MEDS: ENOXAPARIN 30MG/0.3ML SYR SUBCUT SCH (09:47)
[2022-06-15] MEDS ORDERED: INSULIN GLARGINE 100 UNITS/ML SUBCUT SCH (10:00)
[2022-06-15 12:00] VITALS: BP 139/97
[2022-06-15 15:07] LABS: PLATELET ESTIMATE NORMAL
[2022-06-15 16:00] VITALS: BP 134/99
== END 2022-06-15 18:55 | disposition left against medical advice (07) | DRG 720 ==
LOC: ER 17:13 → 6WST 23:17 → ENRESERV 23:54
PROVIDERS: ADMIT Internal Medicine; ATTEND Internal Medicine
PROC: 0DJ08ZZ Inspection of Upper Intestinal Tract, Via Natural or Artificial Opening Endoscopic (ICD-10-PCS; 2022-05-23)
PROC: 0DB98ZX Excision of Duodenum, Via Natural or Artificial Opening Endoscopic, Diagnostic (ICD-10-PCS; 2022-06-08)
PROC: 02HV33Z Insertion of Infusion Device into Superior Vena Cava, Percutaneous Approach (ICD-10-PCS; principal; 2022-06-09)
PROC: B548ZZA Ultrasonography of Superior Vena Cava, Guidance (ICD-10-PCS; 2022-06-09)
PROC: B5181ZA Fluoroscopy of Superior Vena Cava using Low Osmolar Contrast, Guidance (ICD-10-PCS; 2022-06-09)
DX: A41.9 Sepsis, unspecified organism (principal); N17.0 Acute kidney failure with tubular necrosis; E44.0 Moderate protein-calorie malnutrition; K31.1 Adult hypertrophic pyloric stenosis; K31.5 Obstruction of duodenum; E11.43 Type 2 diabetes mellitus with diabetic autonomic (poly)neuropathy; E87.1 Hypo-osmolality and hyponatremia; K31.84 Gastroparesis; E11.65 Type 2 diabetes mellitus with hyperglycemia; E87.6 Hypokalemia; I50.9 Heart failure, unspecified; E87.8 Other disorders of electrolyte and fluid balance, not elsewhere classified; I11.0 Hypertensive heart disease with heart failure; F12.90 Cannabis use, unspecified, uncomplicated; K29.80 Duodenitis without bleeding; K29.70 Gastritis, unspecified, without bleeding; E88.09 Other disorders of plasma-protein metabolism, not elsewhere classified; F17.210 Nicotine dependence, cigarettes, uncomplicated; F32.9 Major depressive disorder, single episode, unspecified; K21.00 Gastro-esophageal reflux disease with esophagitis, without bleeding; K44.0 Diaphragmatic hernia with obstruction, without gangrene; K52.9 Noninfective gastroenteritis and colitis, unspecified; K57.30 Diverticulosis of large intestine without perforation or abscess without bleeding; K76.0 Fatty (change of) liver, not elsewhere classified; Z20.822 Contact with and (suspected) exposure to COVID-19; Z79.4 Long term (current) use of insulin; Z79.899 Other long term (current) drug therapy; Z79.84 Long term (current) use of oral hypoglycemic drugs; Z91.011 Allergy to milk products; Z79.82 Long term (current) use of aspirin; Z68.30 Body mass index [BMI] 30.0-30.9, adult; K40.20 Bilateral inguinal hernia, without obstruction or gangrene, not specified as recurrent
CPT/HCPCS: 36415; 36573; 71045; 74018; 74176; 74177; 74181; 74250; 76700; 80048; 80053; 80061; 80076; 81003; 82270; 82465; 82607; 82728; 82746; 82962; 82977; 83036; 83520; 83540; 83550; 83605; 83735; 84100; 84132; 84145; 84478; 84484; 85025; 85027; 85044; 86256; 86671; 87015; 87045; 87177; 87209; 87426; 87427; 87449; 88305; 89055; 93005; 93306; 94640; 97110; 97162; 97166; 97530; 97535; 99285; C1725; C1769; C9113; C9803; J0330; J0780; J1650; J1815; J1885; J2250; J2270; J2405; J2543; J2704; J2765; J2930; J3010; J3430; J3475; J3480; J3490; J7030; J7042; J7060; J7070; Q9963; Q9967